=== PATIENT | female | born 1980 | race Caucasian/White ===

== ENCOUNTER 2016-11-06 19:09 | Emergency (ER) | payer SELFPAY ==
[2016-11-06 19:28] VITALS: BP 112/81; BMI 28.1
== END 2016-11-06 21:20 | disposition left against medical advice (07) ==
LOC: ER 19:30
DX: M25.551 Pain in right hip (principal)
CPT/HCPCS: 99281

== ENCOUNTER 2016-11-07 00:19 | Emergency (ER) | payer SELFPAY ==
[2016-11-07 00:30] VITALS: BP 106/69; BMI 28.1
--- NOTE | 2016-11-07 01:12 | DR.GENAD ---
HPI - PCP Primary Care Physician: ORALIA - HPI Comment HPI Comment: PATIENT NOTICE REDNESS RIGHT LATERAL ABDOMINAL WALL 6 DAYS AGO. LESION IS SPREADING AND IS NOW DRAINIG PUS. NO FEVER. PATIENT IS NAUSEATED. NO VOMITING, - Complaint/Symptoms Chief Complaint Doctors Comments: SPIDER BITE TIMES 6 DAYS. NAUSEATED. Chief Complaint:: " Got bite by a spider 5-6 days ago. 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 - Family History History of Family Medical Conditions: Yes Family Medical History: Diabetes Mellitus, Cancer, Coronary Artery Disease, Heart Failure, Hypertension - Social History Alcohol Use: None Do you use any recreational Drugs:: No Lives With: Family Lives Where: Home - infectious screening Have you traveled outside the country in the last 6 months?: No ROS - Review of Systems Constitutional: No Symptoms Reported Eyes: No Symptoms Reported ENTM: No Symptoms Reported Respiratoy: No Symptoms Reported Cardiovascular: No Symptoms Reported Gastrointestinal/Abdominal: Other (RIGHT LAT ABDOMINAL WALL CELLULITIS) Genitourinary: No Symptoms Reported Neurological: No Symptoms Reported Musculoskeletal: Muscle Pain Integumentary: No Symptoms Reported Hematologic/Lymphatic: No Symptoms Reported Endocrine: No Symptoms Reported All Other Systems: Reviewed and Negative PE - Vital Signs Vitals: Temperature 97.6 F Pulse Rate 88 Respiratory Rate 18 Blood Pressure 106/69 O2 Sat by Pulse Oximetry 98 - General Limitations: No Limitations General Appearance: Alert - Head Head Exam: Normal Inspection - Eyes Eye exam: Normal Appearance - ENT ENT Exam: Normal External Ear Exam External Ear Exam: Normal External Inspection TM/Canal Exam: Bilateral Normal Nose Exam: Normal Nose Exam Mouth Exam: Normal Inspection Throat Exam: Normal Inspection - Neck Neck Exam: Trachea Midline - Chest Chest Inspection: Symmetric Chest Wall Rise - Respiratory Respiratory Exam: Normal Lung Sounds Bilat Respiratory Exam: Bilateral Clear to Auscultation - Cardiovascular Cardiovascular Exam: Regular Rate, Normal Rhythm, Normal Heart Sounds - Abdominal Exam Abdominal Exam: Normal Bowel Sounds, Soft, Other (ABDOMINAL WALL TENDERNESS, RIGHT LATERAL) Abdominal Tenderness: Other (RIGHT LAT ABDOMINAL WALL TENDERNESS.) - Extremities Extremities Exam: Normal Inspection - Back Back Exam: Normal Inspection - Neurologic Neurological Exam: Alert, Oriented X3 - Psychiatric Psychiatric Exam: Anxious - Skin Skin Exam: Erythema (REDNESS AND DRAINAGE RIGHT LATERAL ABDOMINAL WALL.) MDM - Additional Information Additional Information Obtained From: Family - Differential Diagnosis Differential Diagnosis: CELLULITIS, NAUSEA, ABSCESS Course - Treatment Treatment: SEE ORDERS - Education/Counseling Education/Counseling: Patient, Family, Education Educated On: Treatment, Diagnosis, Needs for Follow Up ROR - Labs Reviewed Laboratory: 11/07/16 01:19 Abdomen Gram Stain - Final - Diagnosis Discharge Problem: Cellulitis Qualifiers: Site of cellulitis: trunk Site of cellulitis of trunk: abdominal wall Qualified Code(s): L03.311 - Cellulitis of abdominal wall Nausea & vomiting Qualifiers: Vomiting type: unspecified - Discharge Plan Disposition: HOME, SELF-CARE Condition: Stable Prescriptions: Ibuprofen [MOTRIN TAB 600 MG *] 600 mg PO TID PRN #20 tab PRN Reason: Pain/Inflammation Ondansetron HCl [Zofran Tab 4 mg] 4 mg PO Q8H PRN #12 tab PRN Reason: Nausea/Vomiting Sulfamethoxazole-Trimethoprim [BACTRIM DS TAB 800/160 MG *] 1 tab PO BID #20 tab - Follow ups/Referrals Follow ups/Referrals: NFD,None [Primary Care Provider] - 2 days ENRIQUE MEJIA [STAFF PHYSICIAN] - 2 days - Instructions Instructions: Cellulitis, Nausea, Adult Additional Instructions: RETURN TO ED IF WORSE.
[2016-11-07] MEDS ORDERED: BACTRIM DS TAB PO ONE ×2 (01:17→01:31)
[2016-11-07] MEDS ORDERED: ZOFRAN INJ 4 MG VIAL IVP ONE (01:17)
[2016-11-07] MEDS ORDERED: MOTRIN TAB 600 MG PO ONE (01:18)
[2016-11-07] MEDS ORDERED: ZOFRAN TAB 4 MG PO ONE (01:30)
[2016-11-07] MEDS ORDERED: ZOFRAN TAB 4 MG ONE (01:31)
[2016-11-07] MEDS ORDERED: MOTRIN TAB 400 MG PO ONE (01:31)
[2016-11-07] MEDS ORDERED: ADVIL TAB 200 MG PO ONE (01:32)
== END 2016-11-07 01:46 | disposition home or self-care (01) ==
LOC: ER 00:19
DX: L03.311 Cellulitis of abdominal wall (principal); R11.2 Nausea with vomiting, unspecified; B96.29 Other Escherichia coli [E. coli] as the cause of diseases classified elsewhere; W57.XXXA Bitten or stung by nonvenomous insect and other nonvenomous arthropods, initial encounter
CPT/HCPCS: 87070; 87075; 87077; 87186; 87205; 99282; 99283; S0181

== ENCOUNTER 2016-11-29 03:31 | Emergency (ER) | payer SELFPAY ==
[2016-11-29 03:49] VITALS: BP 159/117; BMI 27.3
[2016-11-29] MEDS ORDERED: ZOFRAN INJ 4 MG VIAL ONE ×2 (04:02→07:26)
[2016-11-29] MEDS ORDERED: NS 1000 ML 1,000 ML ONE (04:02)
--- NOTE | 2016-11-29 04:04 | DR.GENAD ---
HPI - PCP Primary Care Physician: NFD - Complaint/Symptoms Chief Complaint:: "I have had nausea and vomiting the past 2-3 days. I have also had diarrhea. I think I may have been running fever as well." - Nurses notes reviewed Nurses Notes Review: Yes - Source History Provided: Patient - Mode of Arrival Mode of Arrival: Stretcher - Timing Onset of Chief Complaint: 11/26/16 Came on: Gradually - Duration Duration: Intermittent How lon Duration: Days - Location Location: stomach - Severity Severity: Moderate - Modifying Factors Worsens:: food - Associated Signs and Symptoms Associated Signs and Symptoms: diarrhea - Other History Other History: drug abuse PMH - PMH Past Medical History: Yes Past Medical History: Anxiety, Asthma, Depression Past Surgical History: Yes 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 - Family History History of Family Medical Conditions: Yes Family Medical History: Diabetes Mellitus, Cancer, Coronary Artery Disease, Heart Failure, Hypertension - Social History Does patient currently use any type of tobacco product: Yes Have you used tobacco products in the last 12 months: Yes Type of Tobacco Use: Cigarettes Does any household member use tobacco: Yes Alcohol Use: None Do you use any recreational Drugs:: No Lives With: Alone Lives Where: Home - infectious screening In the last 2 months have you had wt loss of >10#?: NO Have you had fever, night sweats or hemotysis?: No Have you traveled outside the country in the last 6 months?: No Isolation: Standard ROS - Review of Systems Constitutional: No Symptoms Reported Eyes: No Symptoms Reported ENTM: No Symptoms Reported Respiratoy: No Symptoms Reported Cardiovascular: No Symptoms Reported Gastrointestinal/Abdominal: Diarrhea, Nausea, Vomiting Genitourinary: No Symptoms Reported Neurological: No Symptoms Reported Musculoskeletal: No Symptoms Reported Integumentary: No Symptoms Reported Hematologic/Lymphatic: No Symptoms Reported Endocrine: No Symptoms Reported Psychiatric: Depression PE - Vital Signs Vitals: Temperature 98.1 F Pulse Rate 74 Respiratory Rate 17 Blood Pressure 159/117 O2 Sat by Pulse Oximetry 100 - General Limitations: No Limitations General Appearance: Alert, In No Apparent Distress - Head Head Exam: Normal Inspection - Eyes Eye exam: EOMI. negative: Scleral Icterus, Conjunctival Injection - ENT ENT Exam: Normal Oropharynx External Ear Exam: Normal External Inspection - Neck Neck Exam: Normal Inspection, Full ROM, Trachea Midline - Chest Chest Inspection: Normal Inspection - Respiratory Respiratory Exam: Normal Lung Sounds Bilat. negative: Accessory Muscle Use, Respiratory Distress Respiratory Exam: Bilateral Clear to Auscultation - Cardiovascular Cardiovascular Exam: Tachycardia - Abdominal Exam Abdominal Exam: Normal Inspection, Normal Bowel Sounds, Soft. negative: Distention, Tenderness, Guarding Abdominal Tenderness: Epigastrium - Extremities Extremities Exam: Normal Inspection, Full ROM - Back Back Exam: Normal Inspection, Full ROM - Neurologic Neurological Exam: Alert, Oriented X3, CN II-XII Intact - Psychiatric Psychiatric Exam: Depressed - Skin Skin Exam: Intact, Normal Color ROR - Labs Reviewed Result Diagrams: 11/29/16 04:15 11/29/16 04:15 Laboratory: WBC 9.3 X10^3/uL (3.6-10.0) 11/29/16 04:15 RBC 4.93 X10^6/uL (3.5-5.4) 11/29/16 04:15 Hgb 15.1 g/dL (12.0-16.0) 11/29/16 04:15 Hct 45.3 % (36.0-47.0) 11/29/16 04:15 MCV 92.0 fL (80.0-100.0) 11/29/16 04:15 MCH 30.7 pg (27.0-34.0) 11/29/16 04:15 MCHC 33.4 g/dL (33.0-35.0) 11/29/16 04:15 RDW 13.1 % (11.6-16.5) 11/29/16 04:15 Plt Count 260 X10^3/uL (150.0-450.0) 11/29/16 04:15 MPV 7.7 fL (7.4-11.0) 11/29/16 04:15 Neut % 79.7 % (42.0-75.0) H 11/29/16 04:15 Lymph % 14.6 % (21.0-51.0) L 11/29/16 04:15 [place] % 4.1 % (0.0-13.0) 11/29/16 04:15 Eos % 1.0 % (0.9-2.9) 11/29/16 04:15 Baso % 0.6 % (0.2-1.0) 11/29/16 04:15 Neut # 7.4 x10^3/uL (2.2-4.8) H 11/29/16 04:15 Lymph # 1.4 X10^3/uL (1.3-2.9) 11/29/16 04:15 [place] # 0.4 x10^3/uL (0.3-0.8) 11/29/16 04:15 Eos # 0.1 x10^3/uL (0.0-0.2) 11/29/16 04:15 Baso # 0.1 X10^3/uL (0.0-0.1) 11/29/16 04:15 Absolute Nucleated RBC 0.1 /100WBC 11/29/16 04:15 Sodium 140 mmol/L (136-145) 11/29/16 04:15 Corrected Sodium Not Reportable 11/29/16 04:15 Potassium 5.1 mmol/L (3.5-5.1) 11/29/16 04:15 Chloride 104 mmol/L (98-107) 11/29/16 04:15 Carbon Dioxide 25.9 mmol/L (21-32) 11/29/16 04:15 BUN 9 mg/dL (7-18) 11/29/16 04:15 Creatinine 0.89 mg/dL (0.55-1.02) 11/29/16 04:15 Est GFR (MDRD) Af Amer > 60 (>60) 11/29/16 04:15 Est GFR (MDRD) Non-Af > 60 (>60) 11/29/16 04:15 Glucose 173 mg/dL (65-99) H 11/29/16 04:15 Calcium 9.3 mg/dL (8.5-10.1) 11/29/16 04:15 Corrected Calcium TNP 11/29/16 04:15 Total Bilirubin 0.30 mg/dL (0.2-1.0) 11/29/16 04:15 AST 20 Units/L (15-37) 11/29/16 04:15 ALT 25 Units/L (12-78) 11/29/16 04:15 Alkaline Phosphatase 80 Units/L (46-116) 11/29/16 04:15 Total Protein 7.6 g/dL (6.4-8.2) 11/29/16 04:15 Albumin 3.9 g/dL (3.4-5.0) 11/29/16 04:15 Globulin 3.7 g/dL (2.5-4.5) 11/29/16 04:15 Albumin/Globulin Ratio 1.1 Ratio (1.1-2.1) 11/29/16 04:15 HCG, Qual Negative <10 mIU/mL 11/29/16 04:15 Specimen Type Clean catch urine 11/29/16 04:20 Urine Color Yellow (YELLOW) 11/29/16 04:20 Urine Appearance Cloudy (CLEAR) 11/29/16 04:20 Urine pH 6.0 (5.0 - 8.0) 11/29/16 04:20 Ur Specific [place] 1.025 (1.000-1.030) 11/29/16 04:20 Urine Protein 2+ (NEGATIVE) 11/29/16 04:20 Urine Glucose (UA) 1+ (NEGATIVE) 11/29/16 04:20 Urine Ketones 4+ (NEGATIVE) 11/29/16 04:20 Urine Occult Blood 3+ (NEGATIVE) 11/29/16 04:20 Urine Nitrite Negative (NEGATIVE) 11/29/16 04:20 Urine Bilirubin Negative (NEGATIVE) 11/29/16 04:20 Urine Urobilinogen Normal (NORMAL) 11/29/16 04:20 Ur Leukocyte Esterase 3+ (NEGATIVE) 11/29/16 04:20 Urine RBC 3-5 /HPF (NEGATIVE) 11/29/16 04:20 Urine WBC 10-15 /HPF (NEGATIVE) 11/29/16 04:20 Ur Squamous Epith Cells Few /HPF (NEGATIVE) 11/29/16 04:20 Urine Bacteria 1+ /HPF (NEGATIVE) 11/29/16 04:20 Urine Mucus Moderate /HPF (NEGATIVE) 11/29/16 04:20 Urine Trichomonas Few /HPF (NEGATIVE) 11/29/16 04:20 Ur Culture Indicated? Yes/culture set up 11/29/16 04:20 Urine Opiates Screen Negative (NEG=<300) 11/29/16 04:20 Urine Methadone Screen Negative (NEG=<300) 11/29/16 04:20 Ur Barbiturates Screen Negative (NEG=<200) 11/29/16 04:20 Ur Phencyclidine Scrn Negative (NEG=<25) 11/29/16 04:20 Ur Amphetamines Screen Positive (NEG=<1000) A 11/29/16 04:20 U Benzodiazepines Scrn Negative (NEG=<200) 11/29/16 04:20 Urine Cocaine Screen Positive (NEG=<300) A 11/29/16 04:20 U Marijuana (THC) Screen Positive (NEG=<50) A 11/29/16 04:20 - Diagnosis Discharge Problem: Trichomonal infection, Cocaine abuse, Amphetamine abuse UTI (urinary tract infection) Qualifiers: Urinary tract infection type: acute cystitis Hematuria presence: with hematuria Qualified Code(s): N30.01 - Acute cystitis with hematuria - Discharge Plan Condition: Stable - Follow ups/Referrals Follow ups/Referrals: NFD,None [Primary Care Provider] - 3 days - Instructions
[2016-11-29] MEDS ORDERED: ZOFRAN INJ 4 MG VIAL IVP ONE ×2 (04:05→07:13)
[2016-11-29] MEDS ORDERED: NS 500 ML IV 1,000 ML IV ONE (04:05)
[2016-11-29 04:24] LABS: BASOPHILS # (AUTO) 0.1 X10^3/uL (0.0-0.1); BASOPHILS % (AUTO) 0.6 % (0.2-1.0); EOSINOPHILS # (AUTO) 0.1 x10^3/uL (0.0-0.2); HEMATOCRIT 45.3 % (36.0-47.0); HEMOGLOBIN 15.1 g/dL (12.0-16.0); LYMPHOCYTES # (AUTO) 1.4 X10^3/uL (1.3-2.9); LYMPHOCYTES % (AUTO) 14.6 % (21.0-51.0); MEAN CORPUSCULAR HEMOGLOBIN 30.7 pg (27.0-34.0); MEAN CORPUSCULAR HGB CONC 33.4 g/dL (33.0-35.0); MEAN PLATELET VOLUME 7.7 fL (7.4-11.0); MONOCYTES # (AUTO) 0.4 x10^3/uL (0.3-0.8); MONOCYTES % (AUTO) 4.1 % (0.0-13.0); NEUTROPHILS # (AUTO) 7.4 x10^3/uL (2.2-4.8); NEUTROPHILS % (AUTO) 79.7 % (42.0-75.0); PLATELET COUNT 260 X10^3/uL (150.0-450.0); RED BLOOD COUNT 4.93 X10^6/uL (3.5-5.4); RED CELL DISTRIBUTION WIDTH 13.1 % (11.6-16.5); WHITE BLOOD COUNT 9.3 X10^3/uL (3.6-10.0)
[2016-11-29 04:34] LABS: BILIRUBIN,URINE NEGATIVE (NEGATIVE); BLOOD/HEMOGLOBIN,URINE 3+ (NEGATIVE); GLUCOSE, URINE 1+ (NEGATIVE); KETONES,URINE 4+ (NEGATIVE); LEUKOCYTE ESTERASE ,URINE 3+ (NEGATIVE); NITRITES,URINE NEGATIVE (NEGATIVE); PROTEIN,URINE 2+ (NEGATIVE); UROBILINOGEN,URINE NORMAL (NORMAL)
[2016-11-29 04:36] LABS: SERUM PREGNANCY TEST, QUAL NEGATIVE <10 mIU/mL
[2016-11-29 04:47] LABS: APPEARANCE,URINE CLOUDY (CLEAR); BACTERIA,URINE 1+ /HPF (NEGATIVE); COLOR,URINE YELLOW (YELLOW); MUCUS,URINE MODERATE /HPF (NEGATIVE); SQUAMOUS EPITHELIAL CELL,UR FEW /HPF (NEGATIVE); TRICHOMONAS,URINE FEW /HPF (NEGATIVE)
[2016-11-29 04:47] LABS: ALBUMIN 3.9 g/dL (3.4-5.0); ASPARTATE AMINO TRANSFERASE 20 Units/L (15-37); BLOOD UREA NITROGEN 9 mg/dL (7-18); CALCIUM 9.3 mg/dL (8.5-10.1); CARBON DIOXIDE 25.9 mmol/L (21-32); CREATININE 0.89 mg/dL (0.55-1.02); GLUCOSE 173 mg/dL (65-99); eGFR BLACK RACES > 60 (>60); eGFR NON BLACK RACES > 60 (>60)
[2016-11-29 05:06] LABS: ALANINE AMINOTRANSFERASE 25 Units/L (12-78); ALKALINE PHOSPHATASE 80 Units/L (46-116); CHLORIDE 104 mmol/L (98-107); SODIUM 140 mmol/L (136-145); TOTAL PROTEIN 7.6 g/dL (6.4-8.2)
[2016-11-29] MEDS ORDERED: PHENERGAN INJ 25 MG ONE (05:34)
[2016-11-29] MEDS ORDERED: PHENERGAN INJ 25 MG IV ONE (05:34)
[2016-11-29] MEDS ORDERED: FLAGYL IV PREMIX 500 MG BAG 500 MG/100 ML BAG IV ONE ×2 (05:43→06:04)
== END 2016-11-29 07:34 | disposition home or self-care (01) ==
LOC: ER 03:31
DX: F14.10 Cocaine abuse, uncomplicated (principal); F15.10 Other stimulant abuse, uncomplicated; N30.01 Acute cystitis with hematuria; A59.9 Trichomoniasis, unspecified
CPT/HCPCS: 36415; 80053; 80307; 81001; 84703; 85025; 87086; 96365; 96374; 96375; 99283; A4222; S0030; G0434; J2405; J2550

== ENCOUNTER 2016-11-29 20:22 | Emergency (ER) | payer SELFPAY ==
[2016-11-29 20:29] VITALS: BP 109/74; BMI 25.8
[2016-11-29] MEDS ORDERED: TORADOL 60 MG VIAL IM ONE (21:33)
[2016-11-29] MEDS ORDERED: ZOFRAN INJ 4 MG VIAL IM ONE (21:33)
--- NOTE | 2016-11-29 21:33 | DR.GENAD ---
HPI - PCP Primary Care Physician: nfd - HPI Comment HPI Comment: SEEN AT THIS ED YESTERDAY. UTI DIAGNOSE. PERSISTENT SYMTOMS AND FEELING WORSE. NO FEVER. ZOFRAN NOT RELIEVING NAUSEA AND VOMITING. - Complaint/Symptoms Chief Complaint Doctors Comments: ABDOMINAL PAIN, NAUSEA, VOMITING AND REFLUX FLARE UP TIME FEW DAYS. 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 Past Surgical History Comment: tubaligation - Family History History of Family Medical Conditions: Yes Family Medical History: Diabetes Mellitus, Cancer, Coronary Artery Disease, Heart Failure, Hypertension - Social History Type of Tobacco Use: Cigarettes Alcohol Use: None Do you use any recreational Drugs:: Yes Lives With: Family Lives Where: Home - infectious screening In the last 2 months have you had wt loss of >10#?: NO Have you had fever, night sweats or hemotysis?: No Have you traveled outside the country in the last 6 months?: No Isolation: Standard ROS - Review of Systems Constitutional: Weakness, Fatigue, Loss of Appetite. negative: Chills, Diaphoresis, Fever Eyes: No Symptoms Reported. negative: Eye Pain, Discharge ENTM: No Symptoms Reported. negative: Ear Pain, Nose Discharge, Nose Congestion , Throat Pain Respiratoy: No Symptoms Reported. negative: Productive Cough, Non-Productive Cough, Short of Breath, Wheezing, Hemoptysis Cardiovascular: No Symptoms Reported. negative: Chest Pain Gastrointestinal/Abdominal: Abdominal Pain, Nausea, Vomiting Genitourinary: No Symptoms Reported. negative: Dysuria, Frequency, Hematuria Neurological: Weakness, Dizziness. negative: Headache Musculoskeletal: Muscle Pain Integumentary: No Symptoms Reported Hematologic/Lymphatic: No Symptoms Reported Endocrine: No Symptoms Reported All Other Systems: Reviewed and Negative PE - Vital Signs Vitals: Temperature 98.2 F Pulse Rate 97 Respiratory Rate 18 Blood Pressure 109/74 O2 Sat by Pulse Oximetry 100 - General Limitations: No Limitations General Appearance: Alert - Head Head Exam: Normal Inspection - Eyes Eye exam: Normal Appearance - ENT ENT Exam: Normal External Ear Exam External Ear Exam: Normal External Inspection TM/Canal Exam: Bilateral Normal Nose Exam: Normal Nose Exam Mouth Exam: Normal Inspection Throat Exam: Normal Inspection - Neck Neck Exam: Normal Inspection - Chest Chest Inspection: Symmetric Chest Wall Rise - Respiratory Respiratory Exam: Normal Lung Sounds Bilat Respiratory Exam: Bilateral Clear to Auscultation - Cardiovascular Cardiovascular Exam: Regular Rate, Normal Rhythm, Normal Heart Sounds - Abdominal Exam Abdominal Exam: Normal Bowel Sounds, Soft, Tenderness Abdominal Tenderness: Diffuse, Moderate - Extremities Extremities Exam: Normal Inspection - Back Back Exam: Normal Inspection - Neurologic Neurological Exam: Alert, Oriented X3 - Psychiatric Psychiatric Exam: Anxious - Skin Skin Exam: Normal Color MDM - Differential Diagnosis Differential Diagnosis: ABDOMINAL PAIN, N/V, GASTRITIS, HISTORY UTI, DEHYDRATION Course - Treatment Treatment: SEE ORDERS. MEDS IN ED. PAIN IMPROVED. - Education/Counseling Education/Counseling: Patient, Education Educated On: Treatment, Diagnosis, Needs for Follow Up ROR - Labs Reviewed Laboratory Results Reviewed?: Yes Result Diagrams: 11/29/16 21:35 11/29/16 21:35 Laboratory: WBC 9.5 X10^3/uL (3.6-10.0) 11/29/16 21:35 RBC 4.73 X10^6/uL (3.5-5.4) 11/29/16 21:35 Hgb 14.6 g/dL (12.0-16.0) 11/29/16 21:35 Hct 43.5 % (36.0-47.0) 11/29/16 21:35 MCV 92.0 fL (80.0-100.0) 11/29/16 21:35 MCH 30.9 pg (27.0-34.0) 11/29/16 21:35 MCHC 33.6 g/dL (33.0-35.0) 11/29/16 21:35 RDW 13.1 % (11.6-16.5) 11/29/16 21:35 Plt Count 255 X10^3/uL (150.0-450.0) 11/29/16 21:35 MPV 7.5 fL (7.4-11.0) 11/29/16 21:35 Neut % 76.4 % (42.0-75.0) H 11/29/16 21:35 Lymph % 14.8 % (21.0-51.0) L 11/29/16 21:35 [place] % 8.4 % (0.0-13.0) 11/29/16 21:35 Eos % 0.1 % (0.9-2.9) L 11/29/16 21:35 Baso % 0.3 % (0.2-1.0) 11/29/16 21:35 Neut # 7.2 x10^3/uL (2.2-4.8) H 11/29/16 21:35 Lymph # 1.4 X10^3/uL (1.3-2.9) 11/29/16 21:35 [place] # 0.8 x10^3/uL (0.3-0.8) 11/29/16 21:35 Eos # 0.0 x10^3/uL (0.0-0.2) 11/29/16 21:35 Baso # 0.0 X10^3/uL (0.0-0.1) 11/29/16 21:35 Absolute Nucleated RBC 0.1 /100WBC 11/29/16 21:35 Sodium 140 mmol/L (136-145) 11/29/16 21:35 Corrected Sodium 140 mmol/L (136-145) 11/29/16 21:35 Potassium 3.8 mmol/L (3.5-5.1) 11/29/16 21:35 Chloride 103 mmol/L (98-107) 11/29/16 21:35 Carbon Dioxide 27.3 mmol/L (21-32) 11/29/16 21:35 BUN 13 mg/dL (7-18) 11/29/16 21:35 Creatinine 0.97 mg/dL (0.55-1.02) 11/29/16 21:35 Est GFR (MDRD) Af Amer > 60 (>60) 11/29/16 21:35 Est GFR (MDRD) Non-Af > 60 (>60) 11/29/16 21:35 Glucose 113 mg/dL (65-99) H 11/29/16 21:35 Calcium 9.4 mg/dL (8.5-10.1) 11/29/16 21:35 Corrected Calcium TNP 11/29/16 21:35 Total Bilirubin 0.30 mg/dL (0.2-1.0) 11/29/16 21:35 AST 17 Units/L (15-37) 11/29/16 21:35 ALT 22 Units/L (12-78) 11/29/16 21:35 Alkaline Phosphatase 74 Units/L (46-116) 11/29/16 21:35 Total Protein 7.4 g/dL (6.4-8.2) 11/29/16 21:35 Albumin 3.8 g/dL (3.4-5.0) 11/29/16 21:35 Globulin 3.6 g/dL (2.5-4.5) 11/29/16 21:35 Albumin/Globulin Ratio 1.1 Ratio (1.1-2.1) 11/29/16 21:35 - Diagnosis Discharge Problem: Abdominal pain Qualifiers: Abdominal location: generalized Qualified Code(s): R10.84 - Generalized abdominal pain UTI (urinary tract infection) Qualifiers: Urinary tract infection type: site unspecified Hematuria presence: without hematuria Qualified Code(s): N39.0 - Urinary tract infection, site not specified Nausea & vomiting Qualifiers: Vomiting type: bilious vomiting Qualified Code(s): R11.14 - Bilious vomiting - Discharge Plan Disposition: HOME, SELF-CARE Condition: Stable Prescriptions: Promethazine HCl [PHENERGAN TAB 25 MG *] 25 mg PO Q8H PRN #15 tab PRN Reason: Nausea/Vomiting Ranitidine HCl [ZANTAC TAB 150 MG *] 150 mg PO BID #30 tab - Follow ups/Referrals Follow ups/Referrals: NFD,None [Primary Care Provider] - 3 days - Instructions Instructions: Abdominal Pain, Adult, [id number], Nausea and Vomiting, Adult, [id number] Additional Instructions: RETURN TO ED IF WORSE, RETURN TO ED IF WORSE.
[2016-11-29 21:43] LABS: BASOPHILS % (AUTO) 0.3 % (0.2-1.0); EOSINOPHILS % (AUTO) 0.1 % (0.9-2.9); HEMATOCRIT 43.5 % (36.0-47.0); HEMOGLOBIN 14.6 g/dL (12.0-16.0); LYMPHOCYTES # (AUTO) 1.4 X10^3/uL (1.3-2.9); LYMPHOCYTES % (AUTO) 14.8 % (21.0-51.0); MEAN CORPUSCULAR HEMOGLOBIN 30.9 pg (27.0-34.0); MEAN CORPUSCULAR HGB CONC 33.6 g/dL (33.0-35.0); MEAN PLATELET VOLUME 7.5 fL (7.4-11.0); MONOCYTES # (AUTO) 0.8 x10^3/uL (0.3-0.8); MONOCYTES % (AUTO) 8.4 % (0.0-13.0); NEUTROPHILS # (AUTO) 7.2 x10^3/uL (2.2-4.8); NEUTROPHILS % (AUTO) 76.4 % (42.0-75.0); PLATELET COUNT 255 X10^3/uL (150.0-450.0); RED BLOOD COUNT 4.73 X10^6/uL (3.5-5.4); RED CELL DISTRIBUTION WIDTH 13.1 % (11.6-16.5); WHITE BLOOD COUNT 9.5 X10^3/uL (3.6-10.0)
[2016-11-29] MEDS ORDERED: ZOFRAN INJ 4 MG VIAL ONE (21:48)
[2016-11-29] MEDS ORDERED: TORADOL 60 MG VIAL ONE (21:48)
[2016-11-29 21:55] LABS: ALANINE AMINOTRANSFERASE 22 Units/L (12-78); ALBUMIN 3.8 g/dL (3.4-5.0); ALKALINE PHOSPHATASE 74 Units/L (46-116); ASPARTATE AMINO TRANSFERASE 17 Units/L (15-37); BLOOD UREA NITROGEN 13 mg/dL (7-18); CALCIUM 9.4 mg/dL (8.5-10.1); CARBON DIOXIDE 27.3 mmol/L (21-32); CHLORIDE 103 mmol/L (98-107); COR NA(FOR HYPERGLY) 140 mmol/L (136-145); CREATININE 0.97 mg/dL (0.55-1.02); GLUCOSE 113 mg/dL (65-99); SODIUM 140 mmol/L (136-145); TOTAL PROTEIN 7.4 g/dL (6.4-8.2); eGFR BLACK RACES > 60 (>60); eGFR NON BLACK RACES > 60 (>60)
[2016-11-29] MEDS ORDERED: LEVSIN/MAALOX/LIDOC VISC PO ONE (22:10)
[2016-11-29] MEDS ORDERED: LEVSIN/MAALOX/LIDOC VISC ONE (22:11)
[2016-11-29] MEDS ORDERED: PHENERGAN INJ 25 MG IM ONE (22:38)
[2016-11-29] MEDS ORDERED: ZANTAC PO ONE (22:40)
[2016-11-29] MEDS ORDERED: PHENERGAN TAB 25 MG PO ONE (22:41)
== END 2016-11-29 23:04 | disposition home or self-care (01) ==
LOC: ER 20:34
DX: N39.0 Urinary tract infection, site not specified (principal); R10.84 Generalized abdominal pain; R11.14 Bilious vomiting
CPT/HCPCS: 36415; 80053; 85025; 96372; 99283; Q0169; J1885; J2405

== ENCOUNTER 2016-11-30 16:21 | Emergency (ER) | payer SELFPAY ==
[2016-11-30 16:27] VITALS: BP 119/78; BMI 25.8
--- NOTE | 2016-11-30 17:21 | DR.GENAD ---
HPI - PCP Primary Care Physician: nfd - Complaint/Symptoms Chief Complaint Doctors Comments: This is the 3rd day patient presented for same complaints. Chief Complaint:: patient stated she has been vomiting and running off and her period has started and its heavier than normal. 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: NO Have you had fever, night sweats or hemotysis?: No Have you traveled outside the country in the last 6 months?: No Isolation: Standard ROS - Review of Systems Eyes: No Symptoms Reported ENTM: No Symptoms Reported Respiratoy: No Symptoms Reported Cardiovascular: No Symptoms Reported Gastrointestinal/Abdominal: No Symptoms Reported Genitourinary: No Symptoms Reported Neurological: Headache Musculoskeletal: No Symptoms Reported Integumentary: No Symptoms Reported Hematologic/Lymphatic: No Symptoms Reported Endocrine: No Symptoms Reported Psychiatric: No Symptoms Reported All Other Systems: Reviewed and Negative PE - Vital Signs Vitals: Temperature 98.6 F Pulse Rate 86 Respiratory Rate 16 Blood Pressure 119/78 O2 Sat by Pulse Oximetry 99 - General Limitations: No Limitations General Appearance: Alert, In No Apparent Distress - Head Head Exam: Normal Inspection, Atraumatic - Eyes Eye exam: Normal Appearance, PERRL, EOMI - ENT ENT Exam: Normal Exam External Ear Exam: Normal External Inspection TM/Canal Exam: Bilateral Normal Nose Exam: Normal Nose Exam Mouth Exam: Normal Inspection Throat Exam: Normal Inspection - Neck Neck Exam: Normal Inspection - Chest Chest Inspection: Normal Inspection - Respiratory Respiratory Exam: Normal Lung Sounds Bilat Respiratory Exam: Bilateral Clear to Auscultation - Cardiovascular Cardiovascular Exam: Regular Rate, Normal Rhythm - Abdominal Exam Abdominal Exam: Normal Inspection Abdominal Tenderness: negative: RUQ, RLQ, LUQ, LLQ, Epigastrium, Suprapubic, Diffuse, Mild, Moderate, Severe, Other - Extremities Extremities Exam: Normal Inspection, Full ROM - Neurologic Neurological Exam: Alert, Oriented X3, CN II-XII Intact ROR - Labs Reviewed Result Diagrams: 11/30/16 17:40 11/30/16 17:40 Laboratory: WBC 10.0 X10^3/uL (3.6-10.0) 11/30/16 17:40 RBC 4.66 X10^6/uL (3.5-5.4) 11/30/16 17:40 Hgb 14.5 g/dL (12.0-16.0) 11/30/16 17:40 Hct 42.5 % (36.0-47.0) 11/30/16 17:40 MCV 91.1 fL (80.0-100.0) 11/30/16 17:40 MCH 31.2 pg (27.0-34.0) 11/30/16 17:40 MCHC 34.2 g/dL (33.0-35.0) 11/30/16 17:40 RDW 13.3 % (11.6-16.5) 11/30/16 17:40 Plt Count 245 X10^3/uL (150.0-450.0) 11/30/16 17:40 MPV 7.8 fL (7.4-11.0) 11/30/16 17:40 Neut % 72.5 % (42.0-75.0) 11/30/16 17:40 Lymph % 17.9 % (21.0-51.0) L 11/30/16 17:40 [place] % 8.7 % (0.0-13.0) 11/30/16 17:40 Eos % 0.3 % (0.9-2.9) L 11/30/16 17:40 Baso % 0.6 % (0.2-1.0) 11/30/16 17:40 Neut # 7.2 x10^3/uL (2.2-4.8) H 11/30/16 17:40 Lymph # 1.8 X10^3/uL (1.3-2.9) 11/30/16 17:40 [place] # 0.9 x10^3/uL (0.3-0.8) H 11/30/16 17:40 Eos # 0.0 x10^3/uL (0.0-0.2) 11/30/16 17:40 Baso # 0.1 X10^3/uL (0.0-0.1) 11/30/16 17:40 Absolute Nucleated RBC 0.1 /100WBC 11/30/16 17:40 Sodium 140 mmol/L (136-145) 11/30/16 17:40 Corrected Sodium TNP 11/30/16 17:40 Potassium 3.6 mmol/L (3.5-5.1) 11/30/16 17:40 Chloride 102 mmol/L (98-107) 11/30/16 17:40 Carbon Dioxide 29.1 mmol/L (21-32) 11/30/16 17:40 BUN 23 mg/dL (7-18) H 11/30/16 17:40 Creatinine 0.97 mg/dL (0.55-1.02) 11/30/16 17:40 Est GFR (MDRD) Af Amer > 60 (>60) 11/30/16 17:40 Est GFR (MDRD) Non-Af > 60 (>60) 11/30/16 17:40 Glucose 99 mg/dL (65-99) 11/30/16 17:40 Calcium 9.7 mg/dL (8.5-10.1) 11/30/16 17:40 Corrected Calcium TNP 11/30/16 17:40 Total Bilirubin 0.40 mg/dL (0.2-1.0) 11/30/16 17:40 AST 21 Units/L (15-37) 11/30/16 17:40 ALT 22 Units/L (12-78) 11/30/16 17:40 Alkaline Phosphatase 73 Units/L (46-116) 11/30/16 17:40 Total Protein 7.3 g/dL (6.4-8.2) 11/30/16 17:40 Albumin 4.0 g/dL (3.4-5.0) 11/30/16 17:40 Globulin 3.3 g/dL (2.5-4.5) 11/30/16 17:40 Albumin/Globulin Ratio 1.2 Ratio (1.1-2.1) 11/30/16 17:40 - Diagnosis Discharge Problem: Gastroenteritis - Discharge Plan Condition: Stable - Follow ups/Referrals Follow ups/Referrals: NFD,None [Primary Care Provider] - 3 days - Instructions
[2016-11-30] MEDS ORDERED: PHENERGAN INJ 25 MG IV ONE (17:24)
[2016-11-30] MEDS ORDERED: TORADOL 30 MG VIAL IVP ONE (17:45)
[2016-11-30 17:49] LABS: BASOPHILS # (AUTO) 0.1 X10^3/uL (0.0-0.1); BASOPHILS % (AUTO) 0.6 % (0.2-1.0); EOSINOPHILS % (AUTO) 0.3 % (0.9-2.9); HEMATOCRIT 42.5 % (36.0-47.0); HEMOGLOBIN 14.5 g/dL (12.0-16.0); LYMPHOCYTES # (AUTO) 1.8 X10^3/uL (1.3-2.9); LYMPHOCYTES % (AUTO) 17.9 % (21.0-51.0); MEAN CORPUSCULAR HEMOGLOBIN 31.2 pg (27.0-34.0); MEAN CORPUSCULAR HGB CONC 34.2 g/dL (33.0-35.0); MEAN CORPUSCULAR VOLUME 91.1 fL (80.0-100.0); MEAN PLATELET VOLUME 7.8 fL (7.4-11.0); MONOCYTES # (AUTO) 0.9 x10^3/uL (0.3-0.8); MONOCYTES % (AUTO) 8.7 % (0.0-13.0); NEUTROPHILS # (AUTO) 7.2 x10^3/uL (2.2-4.8); NEUTROPHILS % (AUTO) 72.5 % (42.0-75.0); PLATELET COUNT 245 X10^3/uL (150.0-450.0); RED BLOOD COUNT 4.66 X10^6/uL (3.5-5.4); RED CELL DISTRIBUTION WIDTH 13.3 % (11.6-16.5)
[2016-11-30] MEDS ORDERED: PHENERGAN INJ 25 MG ONE (17:49)
[2016-11-30] MEDS ORDERED: NS 1000 ML 1,000 ML ONE (17:49)
[2016-11-30] MEDS ORDERED: TORADOL 30 MG VIAL ONE (17:59)
[2016-11-30] MEDS ORDERED: NS 1000 ML 1,000 ML IV SCH (18:00)
[2016-11-30] MEDS ORDERED: REGLAN INJ 10 MG VIAL ONE (18:08)
[2016-11-30 18:09] LABS: ALANINE AMINOTRANSFERASE 22 Units/L (12-78); ALKALINE PHOSPHATASE 73 Units/L (46-116); ASPARTATE AMINO TRANSFERASE 21 Units/L (15-37); BLOOD UREA NITROGEN 23 mg/dL (7-18); CALCIUM 9.7 mg/dL (8.5-10.1); CARBON DIOXIDE 29.1 mmol/L (21-32); CHLORIDE 102 mmol/L (98-107); CREATININE 0.97 mg/dL (0.55-1.02); GLUCOSE 99 mg/dL (65-99); SODIUM 140 mmol/L (136-145); TOTAL PROTEIN 7.3 g/dL (6.4-8.2); eGFR BLACK RACES > 60 (>60); eGFR NON BLACK RACES > 60 (>60)
[2016-11-30] MEDS ORDERED: REGLAN INJ 10 MG VIAL IVP ONE (18:09)
== END 2016-11-30 19:10 | disposition home or self-care (01) ==
LOC: ER 16:31
DX: K52.89 Other specified noninfective gastroenteritis and colitis (principal)
CPT/HCPCS: 36415; 80053; 85025; 96365; 96367; 96374; 96375; 99283; A4222; J1885; J2550; J2765

== ENCOUNTER 2016-12-01 01:43 | Emergency (ER) | payer SELFPAY ==
[2016-12-01 01:50] VITALS: BP 138/92; BMI 19.5
--- NOTE | 2016-12-01 01:52 | DR.NAUSEAF ---
HPI - Time Seen Time seen: 01:51 - Primary Care Physician Primary Care Physician: nfd - Complaints Chief Complaint Doctors Comments: N,V,D. Patient was seen earlier tonight for same symptoms. VSS (normal) she is afebrile. 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 - Family History History of Family Medical Conditions: Yes Family Medical History: Diabetes Mellitus, Cancer, Coronary Artery Disease, Heart Failure, Hypertension - Social History Do you use any recreational Drugs:: Yes (thc, meth,cocain.) Lives Where: Home - infectious screening Have you traveled outside the country in the last 6 months?: No Isolation: Standard ROS - Review of Systems Eyes: No Symptoms Reported ENTM: No Symptoms Reported Respiratoy: No Symptoms Reported Cardiovascular: No Symptoms Reported Gastrointestinal/Abdominal: No Symptoms Reported Genitourinary: No Symptoms Reported Neurological: No Symptoms Reported Musculoskeletal: No Symptoms Reported Integumentary: No Symptoms Reported Hematologic/Lymphatic: No Symptoms Reported Endocrine: No Symptoms Reported Psychiatric: No Symptoms Reported All Other Systems: Reviewed and Negative PE - Vital Signs Vitals: Temperature 98.9 F Pulse Rate 81 Respiratory Rate 16 Blood Pressure 138/92 O2 Sat by Pulse Oximetry 99 - General Limitations: No Limitations General Appearance: Alert, In No Apparent Distress - Head Head Exam: Normal Inspection, Atraumatic - Eyes Eye exam: Normal Appearance, PERRL, EOMI - Neck Neck Exam: Normal Inspection - Respiratory Respiratory Exam: Normal Lung Sounds Bilat Respiratory Exam: Bilateral Clear to Auscultation - Cardiovascular Cardiovascular Exam: Regular Rate, Normal Rhythm - Abdominal Exam Abdominal Exam: Normal Inspection, Soft. negative: Distention, Tenderness Abdominal Tenderness: negative: RUQ, RLQ, LUQ, LLQ, Epigastrium, Suprapubic, Diffuse, Mild, Moderate, Severe, Other - Rectal Rectal Exam: Deferred - External Exam: Female: Deferred : Speculum Exam (Female): Deferred : Bimanual Exam (female): Normal Bimanual exam - Extremities Extremities Exam: Normal Inspection, Full ROM - Back Back Exam: Normal Inspection, Full ROM - Neurologic Neurological Exam: Alert, Oriented X3, CN II-XII Intact - Psychiatric Psychiatric Exam: Normal Affect - Skin Skin Exam: Warm, Dry, Intact - Diagnosis Discharge Problem: Gastroenteritis - Discharge Plan Disposition: 01 HOME, SELF-CARE Condition: Stable - Follow ups/Referrals Follow ups/Referrals: NFD,None [Primary Care Provider] - 3 days - Instructions Instructions: Viral Gastroenteritis, Adult, [id number]
[2016-12-01] MEDS ORDERED: BENTYL I.M. INJ 10 MG IM ONE ×2 (02:01→02:04)
[2016-12-01] MEDS ORDERED: PHENERGAN INJ 25 MG IM ONE (02:01)
[2016-12-01] MEDS ORDERED: PHENERGAN INJ 25 MG ONE (02:03)
== END 2016-12-01 02:38 | disposition home or self-care (01) ==
LOC: ER 01:43
DX: K52.89 Other specified noninfective gastroenteritis and colitis (principal)
CPT/HCPCS: 96372; 99282; J0500; J2550

== ENCOUNTER 2016-12-05 01:44 | Emergency (ER) | payer SELFPAY ==
[2016-12-05 01:52] VITALS: BP 127/90; BMI 19.5
--- NOTE | 2016-12-05 02:12 | DR.GENAD ---
HPI - PCP Primary Care Physician: nfd - HPI Comment HPI Comment: GETTING WORSE. WAS EVALUATED IN ED FOR SAME FEW TIMES WITHIN 5 DAYS. NO FEVER. HOLD DOWN FLUIDS BUT THROW IT UP. - Complaint/Symptoms Chief Complaint Doctors Comments: ABDOMINAL PAIN, NAUSEA AND VOMITING TIMES 5 DAYS. Chief Complaint:: Patient c/o n/v for the last 5 days. Patient stated "my stomach hurts and my period is heavy. I have been taking my bactrium for my UTI and my reglan,zofran and phenergan. 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 - Family History History of Family Medical Conditions: Yes Family Medical History: Diabetes Mellitus, Cancer, Coronary Artery Disease, Heart Failure, Hypertension - Social History Does patient currently use any type of tobacco product: Yes Have you used tobacco products in the last 12 months: Yes Do you use any recreational Drugs:: Yes (thc, meth,cocain.) Lives Where: Home - infectious screening In the last 2 months have you had wt loss of >10#?: NO Have you had fever, night sweats or hemotysis?: No Have you traveled outside the country in the last 6 months?: No Isolation: Standard ROS - Review of Systems Constitutional: Weakness, Fatigue, Loss of Appetite. negative: Chills, Diaphoresis, Fever Eyes: No Symptoms Reported. negative: Eye Pain, Discharge ENTM: No Symptoms Reported. negative: Ear Pain, Nose Discharge, Nose Congestion , Throat Pain Respiratoy: Non-Productive Cough. negative: Productive Cough, Short of Breath, Wheezing, Hemoptysis Cardiovascular: No Symptoms Reported. negative: Chest Pain, Edema Gastrointestinal/Abdominal: Abdominal Pain, Nausea, Vomiting Genitourinary: No Symptoms Reported, Bleeding (MENSTRUATING.). negative: Dysuria, Frequency, Hematuria Neurological: Headache, Weakness, Dizziness Musculoskeletal: Muscle Pain Integumentary: No Symptoms Reported Hematologic/Lymphatic: No Symptoms Reported Endocrine: No Symptoms Reported All Other Systems: Reviewed and Negative PE - Vital Signs Vitals: Temperature 98.2 F Pulse Rate 105 Respiratory Rate 22 Blood Pressure 127/90 O2 Sat by Pulse Oximetry 98 - General Limitations: No Limitations General Appearance: Alert - Head Head Exam: Normal Inspection - Eyes Eye exam: Normal Appearance - ENT ENT Exam: Normal External Ear Exam External Ear Exam: Normal External Inspection TM/Canal Exam: Bilateral Normal Nose Exam: Normal Nose Exam Mouth Exam: Normal Inspection Throat Exam: Normal Inspection - Neck Neck Exam: Trachea Midline. negative: Tenderness, Meningismus, Lymphadenopathy - Chest Chest Inspection: Symmetric Chest Wall Rise - Respiratory Respiratory Exam: Normal Lung Sounds Bilat Respiratory Exam: Bilateral Clear to Auscultation - Cardiovascular Cardiovascular Exam: Regular Rate, Normal Rhythm, Normal Heart Sounds - Abdominal Exam Abdominal Exam: Normal Bowel Sounds, Soft Abdominal Tenderness: Diffuse, Moderate - Extremities Extremities Exam: Normal Inspection, Full ROM, Tenderness. negative: Edema - Back Back Exam: Normal Inspection - Neurologic Neurological Exam: Alert, Oriented X3, CN II-XII Intact, Normal Gait, Reflexes Normal. negative: Motor Sensory Deficit - Psychiatric Psychiatric Exam: Normal Affect, Normal Mood - Skin Skin Exam: Normal Color MDM - Differential Diagnosis Differential Diagnosis: GASTRITIS, GASTROENTERITIS, BOWEL OBSTRUCTION, UTI Course - Treatment Treatment: IM THORADOL ABD PHENERGAN IN ED. PATIENT HAD CT ABD AND PELVIS DONR IN ED. NO OAUTE FINDINGS. - Reevaluation 1st: Improved - Education/Counseling Education/Counseling: Patient, Education Educated On: Treatment, Diagnosis, Needs for Follow Up ROR - Labs Reviewed Laboratory Results Reviewed?: Yes Result Diagrams: 12/05/16 02:30 12/05/16 02:30 Laboratory: WBC 9.0 X10^3/uL (3.6-10.0) 12/05/16 02:30 RBC 4.46 X10^6/uL (3.5-5.4) 12/05/16 02:30 Hgb 13.8 g/dL (12.0-16.0) 12/05/16 02:30 Hct 40.9 % (36.0-47.0) 12/05/16 02:30 MCV 91.6 fL (80.0-100.0) 12/05/16 02:30 MCH 30.9 pg (27.0-34.0) 12/05/16 02:30 MCHC 33.8 g/dL (33.0-35.0) 12/05/16 02:30 RDW 12.9 % (11.6-16.5) 12/05/16 02:30 Plt Count 221 X10^3/uL (150.0-450.0) 12/05/16 02:30 MPV 7.7 fL (7.4-11.0) 12/05/16 02:30 Neut % 75.2 % (42.0-75.0) H 12/05/16 02:30 Lymph % 17.0 % (21.0-51.0) L 12/05/16 02:30 [place] % 4.8 % (0.0-13.0) 12/05/16 02:30 Eos % 2.4 % (0.9-2.9) 12/05/16 02:30 Baso % 0.6 % (0.2-1.0) 12/05/16 02:30 Neut # 6.7 x10^3/uL (2.2-4.8) H 12/05/16 02:30 Lymph # 1.5 X10^3/uL (1.3-2.9) 12/05/16 02:30 [place] # 0.4 x10^3/uL (0.3-0.8) 12/05/16 02:30 Eos # 0.2 x10^3/uL (0.0-0.2) 12/05/16 02:30 Baso # 0.1 X10^3/uL (0.0-0.1) 12/05/16 02:30 Absolute Nucleated RBC 0.0 /100WBC 12/05/16 02:30 Sodium 140 mmol/L (136-145) 12/05/16 02:30 Corrected Sodium 141 mmol/L (136-145) 12/05/16 02:30 Potassium 3.2 mmol/L (3.5-5.1) L 12/05/16 02:30 Chloride 104 mmol/L (98-107) 12/05/16 02:30 Carbon Dioxide 21.3 mmol/L (21-32) 12/05/16 02:30 BUN 13 mg/dL (7-18) 12/05/16 02:30 Creatinine 0.74 mg/dL (0.55-1.02) 12/05/16 02:30 Est GFR (MDRD) Af Amer > 60 (>60) 12/05/16 02:30 Est GFR (MDRD) Non-Af > 60 (>60) 12/05/16 02:30 Glucose 126 mg/dL (65-99) H 12/05/16 02:30 Calcium 8.7 mg/dL (8.5-10.1) 12/05/16 02:30 Corrected Calcium TNP 12/05/16 02:30 Total Bilirubin 0.40 mg/dL (0.2-1.0) 12/05/16 02:30 AST 20 Units/L (15-37) 12/05/16 02:30 ALT 22 Units/L (12-78) 12/05/16 02:30 Alkaline Phosphatase 69 Units/L (46-116) 12/05/16 02:30 Total Protein 7.1 g/dL (6.4-8.2) 12/05/16 02:30 Albumin 3.9 g/dL (3.4-5.0) 12/05/16 02:30 Globulin 3.2 g/dL (2.5-4.5) 12/05/16 02:30 Albumin/Globulin Ratio 1.2 Ratio (1.1-2.1) 12/05/16 02:30 Specimen Type Clean catch urine 12/05/16 02:09 Urine Color Yellow (YELLOW) 12/05/16 02:09 Urine Appearance Clear (CLEAR) 12/05/16 02:09 Urine pH 6.0 (5.0 - 8.0) 12/05/16 02:09 Ur Specific [place] 1.025 (1.000-1.030) 12/05/16 02:09 Urine Protein 1+ (NEGATIVE) 12/05/16 02:09 Urine Glucose (UA) Negative (NEGATIVE) 12/05/16 02:09 Urine Ketones 4+ (NEGATIVE) 12/05/16 02:09 Urine Occult Blood 3+ (NEGATIVE) 12/05/16 02:09 Urine Nitrite Negative (NEGATIVE) 12/05/16 02:09 Urine Bilirubin Negative (NEGATIVE) 12/05/16 02:09 Urine Urobilinogen Normal (NORMAL) 12/05/16 02:09 Ur Leukocyte Esterase 1+ (NEGATIVE) 12/05/16 02:09 Urine RBC 5-10 /HPF (NEGATIVE) 12/05/16 02:09 Urine WBC 0-3 /HPF (NEGATIVE) 12/05/16 02:09 Ur Squamous Epith Cells Few /HPF (NEGATIVE) 12/05/16 02:09 Urine Bacteria Negative /HPF (NEGATIVE) 12/05/16 02:09 Urine Mucus Few /HPF (NEGATIVE) 12/05/16 02:09 Ur Culture Indicated? No/not indicated 12/05/16 02:09 Urine Opiates Screen Negative (NEG=<300) 12/05/16 02:09 Urine Methadone Screen Negative (NEG=<300) 12/05/16 02:09 Ur Barbiturates Screen Negative (NEG=<200) 12/05/16 02:09 Ur Phencyclidine Scrn Negative (NEG=<25) 12/05/16 02:09 Ur Amphetamines Screen Positive (NEG=<1000) A 12/05/16 02:09 U Benzodiazepines Scrn Positive (NEG=<200) A 12/05/16 02:09 Urine Cocaine Screen Negative (NEG=<300) 12/05/16 02:09 U Marijuana (THC) Screen Positive (NEG=<50) A 12/05/16 02:09 - XRAY XRAY Interpreted by: Radiologist XRAY Findings: REPORT NOTED AND DISCUSS WITH PATIENT. - Diagnosis Discharge Problem: Hypokalemia, Substance use disorder, Nausea & vomiting Abdominal pain Qualifiers: Abdominal location: generalized Qualified Code(s): R10.84 - Generalized abdominal pain - Discharge Plan Condition: Stable Prescriptions: Ketorolac Tromethamine [Toradol Tab] 10 mg PO Q8H PRN #15 tab PRN Reason: Pain Ondansetron HCl [Zofran Tab 4 mg] 4 mg PO Q8H PRN #12 tab PRN Reason: Nausea/Vomiting Ranitidine HCl [ZANTAC TAB 150 MG *] 150 mg PO BID #60 tab - Follow ups/Referrals Follow ups/Referrals: NFD,None [Primary Care Provider] - 1 day ENRIQUE MEJIA [STAFF PHYSICIAN] - 1 day - Instructions Instructions: Abdominal Pain, Adult, [id number], Nausea and Vomiting, Adult, [id number], General Headache Without Cause, [id number] Additional Instructions: RETURN TO ED IF WORSE.
[2016-12-05 02:21] LABS: BILIRUBIN,URINE NEGATIVE (NEGATIVE); BLOOD/HEMOGLOBIN,URINE 3+ (NEGATIVE); GLUCOSE, URINE NEGATIVE (NEGATIVE); KETONES,URINE 4+ (NEGATIVE); LEUKOCYTE ESTERASE ,URINE 1+ (NEGATIVE); NITRITES,URINE NEGATIVE (NEGATIVE); PROTEIN,URINE 1+ (NEGATIVE); UROBILINOGEN,URINE NORMAL (NORMAL)
[2016-12-05] MEDS ORDERED: TORADOL 60 MG VIAL IM ONE (02:25)
[2016-12-05] MEDS ORDERED: PHENERGAN INJ 25 MG IM ONE (02:25)
[2016-12-05] MEDS ORDERED: PHENERGAN INJ 25 MG ONE (02:31)
[2016-12-05] MEDS ORDERED: TORADOL 60 MG VIAL ONE (02:31)
[2016-12-05 02:38] LABS: BASOPHILS # (AUTO) 0.1 X10^3/uL (0.0-0.1); BASOPHILS % (AUTO) 0.6 % (0.2-1.0); EOSINOPHILS # (AUTO) 0.2 x10^3/uL (0.0-0.2); EOSINOPHILS % (AUTO) 2.4 % (0.9-2.9); HEMATOCRIT 40.9 % (36.0-47.0); HEMOGLOBIN 13.8 g/dL (12.0-16.0); LYMPHOCYTES # (AUTO) 1.5 X10^3/uL (1.3-2.9); MEAN CORPUSCULAR HEMOGLOBIN 30.9 pg (27.0-34.0); MEAN CORPUSCULAR HGB CONC 33.8 g/dL (33.0-35.0); MEAN CORPUSCULAR VOLUME 91.6 fL (80.0-100.0); MEAN PLATELET VOLUME 7.7 fL (7.4-11.0); MONOCYTES # (AUTO) 0.4 x10^3/uL (0.3-0.8); MONOCYTES % (AUTO) 4.8 % (0.0-13.0); NEUTROPHILS # (AUTO) 6.7 x10^3/uL (2.2-4.8); NEUTROPHILS % (AUTO) 75.2 % (42.0-75.0); PLATELET COUNT 221 X10^3/uL (150.0-450.0); RED BLOOD COUNT 4.46 X10^6/uL (3.5-5.4); RED CELL DISTRIBUTION WIDTH 12.9 % (11.6-16.5)
[2016-12-05 02:43] LABS: APPEARANCE,URINE CLEAR (CLEAR); BACTERIA,URINE NEGATIVE /HPF (NEGATIVE); COLOR,URINE YELLOW (YELLOW); MUCUS,URINE FEW /HPF (NEGATIVE); SQUAMOUS EPITHELIAL CELL,UR FEW /HPF (NEGATIVE)
[2016-12-05 02:55] LABS: ALANINE AMINOTRANSFERASE 22 Units/L (12-78); ALBUMIN 3.9 g/dL (3.4-5.0); ALKALINE PHOSPHATASE 69 Units/L (46-116); ASPARTATE AMINO TRANSFERASE 20 Units/L (15-37); BLOOD UREA NITROGEN 13 mg/dL (7-18); CALCIUM 8.7 mg/dL (8.5-10.1); CARBON DIOXIDE 21.3 mmol/L (21-32); CHLORIDE 104 mmol/L (98-107); COR NA(FOR HYPERGLY) 141 mmol/L (136-145); CREATININE 0.74 mg/dL (0.55-1.02); GLUCOSE 126 mg/dL (65-99); SODIUM 140 mmol/L (136-145); TOTAL PROTEIN 7.1 g/dL (6.4-8.2); eGFR BLACK RACES > 60 (>60); eGFR NON BLACK RACES > 60 (>60)
--- NOTE | 2016-12-05 04:11 | CT ---
CT abdomen and pelvis without contrast Indication: Abdominal pain Technique: Helical images through the abdomen and pelvis without contrast. Findings: There is no lower chest abnormality. Review of bone windows shows no osseous abnormality. Abdomen: The liver, spleen, pancreas, adrenal glands, kidneys, stomach and small bowel are normal. T he appendix and colon show no acute abnormality with a few scattered diverticula noted. Pelvis: Urinary bladder, rectum and uterus are normal. No adnexal region lesion seen. Tampon is seen in the vagina. Impression: No acute abnormality Reported By:
[2016-12-05] MEDS ORDERED: POTASSIUM CHLORIDE LIQ 20 MEQ UDC PO ONE (04:30)
[2016-12-05] MEDS ORDERED: POTASSIUM CHLORIDE LIQ 20 MEQ UDC ONE (04:44)
[2016-12-05] MEDS ORDERED: ZANTAC INJ IM ONE (04:47)
[2016-12-05] MEDS ORDERED: ZOFRAN INJ 4 MG VIAL ONE (04:47)
[2016-12-05] MEDS ORDERED: ZOFRAN INJ 4 MG VIAL IM ONE (04:50)
[2016-12-05] MEDS ORDERED: LEVSIN/MAALOX/LIDOC VISC PO ONE (05:17)
[2016-12-05] MEDS ORDERED: LEVSIN/MAALOX/LIDOC VISC ONE (05:18)
== END 2016-12-05 05:24 | disposition home or self-care (01) ==
LOC: ER 01:44
DX: E87.6 Hypokalemia (principal); F19.10 Other psychoactive substance abuse, uncomplicated; R11.2 Nausea with vomiting, unspecified; R10.84 Generalized abdominal pain
CPT/HCPCS: 36415; 74176; 80053; 80307; 81001; 85025; 96372; 99283; G0434; J1885; J2405; J2550

== ENCOUNTER 2017-01-30 02:20 | Emergency (ER) | payer SELFPAY ==
[2017-01-30 02:28] VITALS: BP 98/64; BMI 25.8
--- NOTE | 2017-01-30 02:57 | DR.GENAD ---
HPI - PCP Primary Care Physician: NFD - Complaint/Symptoms Chief Complaint Doctors Comments: Patient states that she was seen in [place] three days ago for the treatment of migraine. She states that she has not been diagnosed with migraine but thinks this is what she has. The pain is the the eyes w/o aura. She also c/o low back pain; denies a history of trauma. Chief Complaint:: C/O LOW BACK PAIN, MIGRAINE, NAUSEA. 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 - Family History History of Family Medical Conditions: Yes Family Medical History: Diabetes Mellitus, Cancer, Coronary Artery Disease, Heart Failure, Hypertension - Social History Type of Tobacco Use: Cigarettes How many years tobacco product used: 25 Alcohol Use: None Do you use any recreational Drugs:: No Lives With: Family Lives Where: Home - infectious screening In the last 2 months have you had wt loss of >10#?: NO Have you had fever, night sweats or hemotysis?: No Have you traveled outside the country in the last 6 months?: No Isolation: Standard ROS - Review of Systems Eyes: No Symptoms Reported ENTM: No Symptoms Reported Respiratoy: No Symptoms Reported Cardiovascular: No Symptoms Reported Gastrointestinal/Abdominal: No Symptoms Reported Genitourinary: No Symptoms Reported Neurological: No Symptoms Reported Musculoskeletal: No Symptoms Reported Integumentary: No Symptoms Reported Hematologic/Lymphatic: No Symptoms Reported Endocrine: No Symptoms Reported Psychiatric: No Symptoms Reported All Other Systems: Reviewed and Negative PE - Vital Signs Vitals: Temperature 97.6 F Pulse Rate 84 Respiratory Rate 20 Blood Pressure 98/64 O2 Sat by Pulse Oximetry 100 - General Limitations: No Limitations General Appearance: Alert, In No Apparent Distress, Anxious - Head Head Exam: Normal Inspection, Atraumatic - Eyes Eye exam: Normal Appearance, PERRL, EOMI - ENT ENT Exam: Normal Exam External Ear Exam: Normal External Inspection TM/Canal Exam: Bilateral Normal Nose Exam: Normal Nose Exam Mouth Exam: Normal Inspection Throat Exam: Normal Inspection - Neck Neck Exam: Normal Inspection, Full ROM - Chest Chest Inspection: Normal Inspection - Respiratory Respiratory Exam: Normal Lung Sounds Bilat Respiratory Exam: Bilateral Clear to Auscultation - Cardiovascular Cardiovascular Exam: Regular Rate, Normal Rhythm - Abdominal Exam Abdominal Exam: Normal Inspection, Normal Bowel Sounds Abdominal Tenderness: negative: RUQ, RLQ, LUQ, LLQ, Epigastrium, Suprapubic, Diffuse, Mild, Moderate, Severe, Other - Extremities Extremities Exam: Normal Inspection - Back Back Exam: (R) CVA Tenderness - Neurologic Neurological Exam: Alert, Oriented X3, CN II-XII Intact - Psychiatric Psychiatric Exam: Normal Affect - Skin Skin Exam: Warm, Dry, Intact Course - Treatment Treatment: Patient left prior to lumbar x-ray. - Diagnosis Discharge Problem: Headache Qualifiers: Headache type: unspecified Headache chronicity pattern: unspecified pattern Intractability: not intractable Qualified Code(s): R51 - Headache - Discharge Plan Condition: Stable - Follow ups/Referrals Follow ups/Referrals: NFD,None [Primary Care Provider] - 3 days - Instructions
[2017-01-30] MEDS ORDERED: TORADOL 60 MG VIAL IM ONE (03:01)
[2017-01-30] MEDS ORDERED: PHENERGAN INJ 25 MG IM ONE (03:01)
[2017-01-30] MEDS ORDERED: TORADOL 60 MG VIAL ONE (03:03)
[2017-01-30] MEDS ORDERED: PHENERGAN INJ 25 MG ONE (03:04)
--- NOTE | 2017-01-30 04:00 | RAD ---
EXAM: Lumbar Spine X-Ray INDICATION: Lumbar pain COMPARISION: No priors for comparison TECHNIQUE: AP, lateral L-S junction, and lateral views were obtained, 3 views FINDINGS: There is normal alignment of the lumbar spine. No fracture or subluxation. The vertebral body and in tervertebral disc heights are preserved. The facets appear unremarkable. The surrounding soft tissue s are normal. IMPRESSION: Normal lumbar spine examination Reported By:
[2017-01-30] MEDS ORDERED: CITROMA PO ONE (04:03)
== END 2017-01-30 04:15 | disposition home or self-care (01) ==
LOC: ER 02:20
DX: R51 Headache (principal)
CPT/HCPCS: 72100; 96372; 99282; J1885; J2550

== ENCOUNTER 2017-02-08 06:22 | Emergency (ER) | payer SELFPAY ==
[2017-02-08 06:31] VITALS: BP 115/83; BMI 21.2
--- NOTE | 2017-02-08 07:09 | DR.GENAD ---
HPI - PCP Primary Care Physician: NFD - Complaint/Symptoms Chief Complaint Doctors Comments: Patient admits to being on antibiotics and zofran for one week was treated by Scotty GARCIA. Patient does not know what she was treated for. Today she stated that she has an appointment with Derek to get back on her medication and anxiety. 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 - Family History History of Family Medical Conditions: Yes Family Medical History: Diabetes Mellitus, Cancer, Coronary Artery Disease, Heart Failure, Hypertension - Social History Does patient currently use any type of tobacco product: Yes Have you used tobacco products in the last 12 months: Yes Type of Tobacco Use: Cigarettes Alcohol Use: Occasionally Do you use any recreational Drugs:: No Lives With: Alone Lives Where: Home - infectious screening In the last 2 months have you had wt loss of >10#?: NO Have you had fever, night sweats or hemotysis?: No Have you traveled outside the country in the last 6 months?: No Isolation: Standard ROS - Review of Systems Eyes: No Symptoms Reported ENTM: No Symptoms Reported Respiratoy: No Symptoms Reported Cardiovascular: No Symptoms Reported Gastrointestinal/Abdominal: No Symptoms Reported Genitourinary: No Symptoms Reported Neurological: No Symptoms Reported Musculoskeletal: No Symptoms Reported Integumentary: No Symptoms Reported Hematologic/Lymphatic: No Symptoms Reported Endocrine: No Symptoms Reported Psychiatric: No Symptoms Reported All Other Systems: Reviewed and Negative PE - Vital Signs Vitals: Temperature 98.3 F Pulse Rate 92 Respiratory Rate 16 Blood Pressure 115/83 O2 Sat by Pulse Oximetry 98 - General General Appearance: Alert, In No Apparent Distress - Head Head Exam: Normal Inspection, Atraumatic - Eyes Eye exam: Normal Appearance, PERRL, EOMI - ENT ENT Exam: Mucous Membranes Dry External Ear Exam: Normal External Inspection TM/Canal Exam: Bilateral Normal Nose Exam: Normal Nose Exam Mouth Exam: Normal Inspection Throat Exam: Normal Inspection - Neck Neck Exam: Normal Inspection - Chest Chest Inspection: Normal Inspection - Cardiovascular Cardiovascular Exam: Regular Rate - Abdominal Exam Abdominal Exam: Normal Inspection Abdominal Tenderness: negative: RUQ, RLQ, LUQ, LLQ, Epigastrium, Suprapubic, Diffuse, Mild, Moderate, Severe, Other - Extremities Extremities Exam: Normal Inspection, Full ROM - Back Back Exam: Normal Inspection, Full ROM - Neurologic Neurological Exam: Alert, Oriented X3, CN II-XII Intact - Psychiatric Psychiatric Exam: Normal Affect, Normal Mood - Skin Skin Exam: Warm, Dry, Intact Course - Reevaluation 1st: Improved ROR - Labs Reviewed Result Diagrams: 02/08/17 07:30 02/08/17 07:30 Laboratory: Specimen Type Clean catch urine 02/08/17 07:01 Urine Color Yellow (YELLOW) 02/08/17 07:01 Urine Appearance Slightly hazy (CLEAR) 02/08/17 07:01 Urine pH 6.0 (5.0 - 8.0) 02/08/17 07:01 Ur Specific [place] 1.020 (1.000-1.030) 02/08/17 07:01 Urine Protein 1+ (NEGATIVE) 02/08/17 07:01 Urine Glucose (UA) Negative (NEGATIVE) 02/08/17 07:01 Urine Ketones Negative (NEGATIVE) 02/08/17 07:01 Urine Occult Blood 3+ (NEGATIVE) 02/08/17 07:01 Urine Nitrite Negative (NEGATIVE) 02/08/17 07:01 Urine Bilirubin Negative (NEGATIVE) 02/08/17 07:01 Urine Urobilinogen 2+ (NORMAL) 02/08/17 07:01 Ur Leukocyte Esterase 1+ (NEGATIVE) 02/08/17 07:01 Urine RBC 5-10 /HPF (NEGATIVE) 02/08/17 07:01 Urine WBC 0-3 /HPF (NEGATIVE) 02/08/17 07:01 Ur Squamous Epith Cells Many /HPF (NEGATIVE) 02/08/17 07:01 Urine Bacteria Trace /HPF (NEGATIVE) 02/08/17 07:01 Ur Culture Indicated? No/not indicated 02/08/17 07:01 Urine Opiates Screen Negative (NEG=<300) 02/08/17 07:01 Urine Methadone Screen Negative (NEG=<300) 02/08/17 07:01 Ur Barbiturates Screen Negative (NEG=<200) 02/08/17 07:01 Ur Phencyclidine Scrn Negative (NEG=<25) 02/08/17 07:01 Ur Amphetamines Screen Negative (NEG=<1000) 02/08/17 07:01 U Benzodiazepines Scrn Negative (NEG=<200) 02/08/17 07:01 Urine Cocaine Screen Negative (NEG=<300) 02/08/17 07:01 U Marijuana (THC) Screen Positive (NEG=<50) A 02/08/17 07:01 - Diagnosis Discharge Problem: Arthritis - Discharge Plan Condition: Stable - Follow ups/Referrals Follow ups/Referrals: NFD,None [Primary Care Provider] - 3 days - Instructions
[2017-02-08 07:12] LABS: BILIRUBIN,URINE NEGATIVE (NEGATIVE); BLOOD/HEMOGLOBIN,URINE 3+ (NEGATIVE); GLUCOSE, URINE NEGATIVE (NEGATIVE); KETONES,URINE NEGATIVE (NEGATIVE); LEUKOCYTE ESTERASE ,URINE 1+ (NEGATIVE); NITRITES,URINE NEGATIVE (NEGATIVE); PROTEIN,URINE 1+ (NEGATIVE); UROBILINOGEN,URINE 2+ (NORMAL)
[2017-02-08] MEDS ORDERED: NS 1000 ML 1,000 ML IV ONE (07:12)
[2017-02-08] MEDS ORDERED: PHENERGAN INJ 25 MG IV ONE (07:14)
[2017-02-08] MEDS ORDERED: NS 1000 ML 1,000 ML ONE (07:17)
[2017-02-08] MEDS ORDERED: PHENERGAN INJ 25 MG ONE (07:17)
[2017-02-08 07:23] LABS: APPEARANCE,URINE SLIGHTLY HAZY (CLEAR); BACTERIA,URINE TRACE /HPF (NEGATIVE); COLOR,URINE YELLOW (YELLOW); SQUAMOUS EPITHELIAL CELL,UR MANY /HPF (NEGATIVE)
[2017-02-08] MEDS ORDERED: TORADOL 30 MG VIAL IVP ONE (07:30)
[2017-02-08] MEDS ORDERED: TORADOL 30 MG VIAL ONE ×2 (07:32→08:43)
[2017-02-08 07:39] LABS: BASOPHILS # (AUTO) 0.1 X10^3/uL (0.0-0.1); BASOPHILS % (AUTO) 1.4 % (0.2-1.0); EOSINOPHILS # (AUTO) 0.2 x10^3/uL (0.0-0.2); EOSINOPHILS % (AUTO) 2.7 % (0.9-2.9); HEMATOCRIT 37.5 % (36.0-47.0); HEMOGLOBIN 12.8 g/dL (12.0-16.0); LYMPHOCYTES # (AUTO) 2.6 X10^3/uL (1.3-2.9); LYMPHOCYTES % (AUTO) 31.5 % (21.0-51.0); MEAN CORPUSCULAR HEMOGLOBIN 30.3 pg (27.0-34.0); MEAN CORPUSCULAR HGB CONC 34.1 g/dL (33.0-35.0); MEAN CORPUSCULAR VOLUME 88.9 fL (80.0-100.0); MEAN PLATELET VOLUME 7.5 fL (7.4-11.0); MONOCYTES # (AUTO) 0.6 x10^3/uL (0.3-0.8); MONOCYTES % (AUTO) 7.9 % (0.0-13.0); NEUTROPHILS # (AUTO) 4.6 x10^3/uL (2.2-4.8); NEUTROPHILS % (AUTO) 56.5 % (42.0-75.0); PLATELET COUNT 231 X10^3/uL (150.0-450.0); RED BLOOD COUNT 4.22 X10^6/uL (3.5-5.4); RED CELL DISTRIBUTION WIDTH 14.7 % (11.6-16.5); WHITE BLOOD COUNT 8.1 X10^3/uL (3.6-10.0)
[2017-02-08 07:51] LABS: ALANINE AMINOTRANSFERASE 84 Units/L (12-78); ALBUMIN 3.5 g/dL (3.4-5.0); ALKALINE PHOSPHATASE 114 Units/L (46-116); ASPARTATE AMINO TRANSFERASE 68 Units/L (15-37); BLOOD UREA NITROGEN 16 mg/dL (7-18); CALCIUM 8.2 mg/dL (8.5-10.1); CARBON DIOXIDE 28.6 mmol/L (21-32); CHLORIDE 105 mmol/L (98-107); CREATININE 0.74 mg/dL (0.55-1.02); GLUCOSE 108 mg/dL (65-99); SODIUM 140 mmol/L (136-145); eGFR BLACK RACES > 60 (>60); eGFR NON BLACK RACES > 60 (>60)
[2017-02-08] MEDS ORDERED: IMITREX INJ SC ONE ×2 (07:53→08:21)
[2017-02-08] MEDS ORDERED: TORADOL 30 MG VIAL IM ONE (08:29)
== END 2017-02-08 09:07 | disposition home or self-care (01) ==
LOC: ER 06:22
DX: G43.909 Migraine, unspecified, not intractable, without status migrainosus (principal); K52.89 Other specified noninfective gastroenteritis and colitis
CPT/HCPCS: 36415; 80053; 80307; 81001; 85025; 96365; 96372; 96374; 96375; 99282; 99283; A4222; G0434; J1885; J2550; J3030

== ENCOUNTER 2017-03-01 09:53 | Emergency (ER) | payer SELFPAY ==
[2017-03-01 09:59] VITALS: BP 133/80; BMI 22.8
--- NOTE | 2017-03-01 11:00 | DR.GENAD ---
HPI - PCP Primary Care Physician: ORALIA - HPI Comment HPI Comment: Pt c/o 2-3 day h/o Headache with nausea and occassional vomiting. 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 - Family History History of Family Medical Conditions: Yes Family Medical History: Diabetes Mellitus, Cancer, [place], Hypertension - Social History Does patient currently use any type of tobacco product: Yes Have you used tobacco products in the last 12 months: Yes Type of Tobacco Use: Cigarettes Does any household member use tobacco: Yes Alcohol Use: None Do you use any recreational Drugs:: No (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 ) Lives With: Family Lives Where: Home - infectious screening In the last 2 months have you had wt loss of >10#?: NO Have you had fever, night sweats or hemotysis?: No Have you traveled outside the country in the last 6 months?: No Isolation: Standard ROS - Review of Systems Constitutional: No Symptoms Reported Eyes: No Symptoms Reported ENTM: No Symptoms Reported Respiratoy: No Symptoms Reported Cardiovascular: No Symptoms Reported Gastrointestinal/Abdominal: Nausea, Vomiting Genitourinary: No Symptoms Reported Neurological: Headache Musculoskeletal: No Symptoms Reported Integumentary: No Symptoms Reported Hematologic/Lymphatic: No Symptoms Reported Endocrine: No Symptoms Reported Psychiatric: Other (bipolar and anxiety) All Other Systems: Reviewed and Negative PE - Vital Signs Vitals: Temperature 99.1 F Pulse Rate 115 Respiratory Rate 20 Blood Pressure 133/80 O2 Sat by Pulse Oximetry 99 - General Limitations: No Limitations General Appearance: Alert, In No Apparent Distress - Head Head Exam: Normal Inspection - Eyes Eye exam: Normal Appearance, PERRL, EOMI - ENT ENT Exam: Normal Exam, Normal Oropharynx, Normal External Ear Exam, Mucous Membranes Moist Nose Exam: Normal Nose Exam Mouth Exam: Normal Inspection Throat Exam: Normal Inspection - Neck Neck Exam: Normal Inspection, Full ROM, Trachea Midline - Chest Chest Inspection: Normal Inspection - Respiratory Respiratory Exam: Normal Lung Sounds Bilat Respiratory Exam: Bilateral Clear to Auscultation - Cardiovascular Cardiovascular Exam: Regular Rate, Normal Rhythm, Normal Heart Sounds - Abdominal Exam Abdominal Exam: Normal Inspection - Extremities Extremities Exam: Normal Inspection, Full ROM, Tenderness - Back Back Exam: Normal Inspection, Full ROM. negative: Tenderness, (R) CVA Tenderness, (L) CVA Tenderness, Muscle Spasm, Paraspinal Tenderness, Vertebral Tenderness, (R) Straight Leg Raise, (L) Straight Leg Raise - Neurologic Neurological Exam: Alert, Oriented X3, CN II-XII Intact - Psychiatric Psychiatric Exam: Normal Affect, Normal Mood - Skin Skin Exam: Warm, Dry, Intact, Normal Color MDM - Differential Diagnosis Differential Diagnosis: Migraine headache , aleergic rhinosinusitis, Tension headache - Diagnosis Discharge Problem: Headache around the eyes Low back strain Qualifiers: Encounter type: initial encounter Qualified Code(s): S39.012A - Strain of muscle, fascia and tendon of lower back, initial encounter Headache Qualifiers: Headache type: paroxysmal hemicrania Headache chronicity pattern: episodic headache Intractability: not intractable Qualified Code(s): G44.039 - Episodic paroxysmal hemicrania, not intractable - Discharge Plan Disposition: 01 HOME, SELF-CARE Condition: Stable Prescriptions: Naproxen Sodium [Anaprox Ds] 550 mg PO BID #30 tablet Prochlorperazine Maleate [Compazine] 10 mg PO BID #10 tab - Follow ups/Referrals Follow ups/Referrals: NFD,None [Primary Care Provider] - 3 days - Instructions Instructions: Nausea, Adult, Recurrent Migraine Headache, Back Pain, Adult, [id number]
[2017-03-01] MEDS ORDERED: ZOFRAN INJ 4 MG VIAL IM ONE (11:04)
[2017-03-01] MEDS ORDERED: TORADOL 60 MG VIAL IM ONE (11:04)
[2017-03-01] MEDS ORDERED: DECADRON INJ IM ONE (11:04)
[2017-03-01] MEDS ORDERED: TORADOL 60 MG VIAL ONE (11:22)
[2017-03-01] MEDS ORDERED: DECADRON INJ ONE (11:22)
[2017-03-01] MEDS ORDERED: ZOFRAN INJ 4 MG VIAL ONE (11:22)
== END 2017-03-01 11:41 | disposition home or self-care (01) ==
LOC: ER 10:12
DX: S39.012A Strain of muscle, fascia and tendon of lower back, initial encounter (principal); G44.039 Episodic paroxysmal hemicrania, not intractable; X50.9XXA Other and unspecified overexertion or strenuous movements or postures, initial encounter; Y92.9 Unspecified place or not applicable
CPT/HCPCS: 96372; 99282; J1100; J1885; J2405

== ENCOUNTER 2017-05-21 18:58 | Emergency (ER) | payer SELFPAY ==
[2017-05-21 19:06] VITALS: BP 144/89; BMI 24.3
[2017-05-21] MEDS ORDERED: NS 1000 ML 1,000 ML IV ONE (19:42)
[2017-05-21] MEDS ORDERED: PHENERGAN INJ 25 MG IV ONE (19:43)
--- NOTE | 2017-05-21 19:44 | DR.GENAD ---
HPI - PCP Primary Care Physician: NFD - Complaint/Symptoms Chief Complaint Doctors Comments: Patient states that she just got of [facility] on last week for the same symptoms she has now; vomiting, diarrhea and stomach pain. Chief Complaint:: PT STATES" I.VE GOT BACK PAIN EVERY SINCE 2008 AFTER I HAD A TUBAL. MY NERVES ARE REALLY BAD I;M MANIC DEPRESSIVE AND I HAVE NOT BEEN ON MY MEDS FOR ABOUT A WEEK. I FEEL LIKE EVERYONE IS OUT TO GET ME AND ITS BAD. 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 Past Surgical History Comment: TUBAL - Family History History of Family Medical Conditions: Yes Family Medical History: Diabetes Mellitus, Cancer, [place], Hypertension - Social History Type of Tobacco Use: Cigarettes Does any household member use tobacco: No Alcohol Use: Occasionally Do you use any recreational Drugs:: Yes Lives With: Significant Other Lives Where: Home - infectious screening In the last 2 months have you had wt loss of >10#?: NO Have you had fever, night sweats or hemotysis?: No Have you traveled outside the country in the last 6 months?: No Isolation: Standard ROS - Review of Systems Eyes: No Symptoms Reported ENTM: No Symptoms Reported Respiratoy: No Symptoms Reported Cardiovascular: No Symptoms Reported Gastrointestinal/Abdominal: No Symptoms Reported Genitourinary: No Symptoms Reported Neurological: No Symptoms Reported Musculoskeletal: No Symptoms Reported Integumentary: No Symptoms Reported Hematologic/Lymphatic: No Symptoms Reported Endocrine: No Symptoms Reported Psychiatric: No Symptoms Reported All Other Systems: Reviewed and Negative PE - Vital Signs Vitals: Temperature 982 F Pulse Rate 98 Respiratory Rate 18 Blood Pressure 144/89 O2 Sat by Pulse Oximetry 100 - General General Appearance: Alert, In No Apparent Distress - Head Head Exam: Normal Inspection, Atraumatic - Eyes Eye exam: Normal Appearance, PERRL, EOMI - ENT ENT Exam: Normal Exam External Ear Exam: Normal External Inspection TM/Canal Exam: Bilateral Normal Nose Exam: Normal Nose Exam Mouth Exam: Normal Inspection Throat Exam: Normal Inspection - Neck Neck Exam: Normal Inspection - Chest Chest Inspection: Normal Inspection - Respiratory Respiratory Exam: Normal Lung Sounds Bilat Respiratory Exam: Bilateral Clear to Auscultation - Cardiovascular Cardiovascular Exam: Regular Rate, Normal Rhythm - Abdominal Exam Abdominal Exam: Normal Inspection, Normal Bowel Sounds Abdominal Tenderness: negative: RUQ, RLQ, LUQ, LLQ, Epigastrium, Suprapubic, Diffuse, Mild, Moderate, Severe, Other - Extremities Extremities Exam: Normal Inspection, Full ROM - Back Back Exam: Normal Inspection, Full ROM - Neurologic Neurological Exam: Alert, Oriented X3, CN II-XII Intact - Psychiatric Psychiatric Exam: Normal Affect - Skin Skin Exam: Warm, Dry, Intact ROR - Labs Reviewed Result Diagrams: 05/21/17 20:35 05/21/17 20:35 Laboratory: WBC 9.1 X10^3/uL (3.6-10.0) 05/21/17 20:35 RBC 4.48 X10^6/uL (3.5-5.4) 05/21/17 20:35 Hgb 13.8 g/dL (12.0-16.0) 05/21/17 20:35 Hct 39.9 % (36.0-47.0) 05/21/17 20:35 MCV 89.2 fL (80.0-100.0) 05/21/17 20:35 MCH 30.7 pg (27.0-34.0) 05/21/17 20:35 MCHC 34.4 g/dL (33.0-35.0) 05/21/17 20:35 RDW 13.6 % (11.6-16.5) 05/21/17 20:35 Plt Count 268 X10^3/uL (150.0-450.0) 05/21/17 20:35 MPV 7.6 fL (7.4-11.0) 05/21/17 20:35 Neut % 68.4 % (42.0-75.0) 05/21/17 20:35 Lymph % 20.2 % (21.0-51.0) L 05/21/17 20:35 [place] % 7.0 % (0.0-13.0) 05/21/17 20:35 Eos % 3.3 % (0.9-2.9) H 05/21/17 20:35 Baso % 1.1 % (0.2-1.0) H 05/21/17 20:35 Neut # 6.2 x10^3/uL (2.2-4.8) H 05/21/17 20:35 Lymph # 1.8 X10^3/uL (1.3-2.9) 05/21/17 20:35 [place] # 0.6 x10^3/uL (0.3-0.8) 05/21/17 20:35 Eos # 0.3 x10^3/uL (0.0-0.2) H 05/21/17 20:35 Baso # 0.1 X10^3/uL (0.0-0.1) 05/21/17 20:35 Absolute Nucleated RBC 0.0 /100WBC 05/21/17 20:35 Sodium 139 mmol/L (136-145) 05/21/17 20:35 Corrected Sodium TNP 05/21/17 20:35 Potassium 3.6 mmol/L (3.5-5.1) 05/21/17 20:35 Chloride 102 mmol/L (98-107) 05/21/17 20:35 Carbon Dioxide 27.7 mmol/L (21-32) 05/21/17 20:35 BUN 13 mg/dL (7-18) 05/21/17 20:35 Creatinine 0.88 mg/dL (0.55-1.02) 05/21/17 20:35 Est GFR (MDRD) Af Amer > 60 (>60) 05/21/17 20:35 Est GFR (MDRD) Non-Af > 60 (>60) 05/21/17 20:35 Glucose 92 mg/dL (65-99) 05/21/17 20:35 Calcium 9.4 mg/dL (8.5-10.1) 05/21/17 20:35 Corrected Calcium TNP 05/21/17 20:35 Total Bilirubin 0.40 mg/dL (0.2-1.0) 05/21/17 20:35 AST 31 Units/L (15-37) 05/21/17 20:35 ALT 24 Units/L (12-78) 05/21/17 20:35 Alkaline Phosphatase 75 Units/L (46-116) 05/21/17 20:35 Total Protein 7.5 g/dL (6.4-8.2) 05/21/17 20:35 Albumin 4.1 g/dL (3.4-5.0) 05/21/17 20:35 Globulin 3.4 g/dL (2.5-4.5) 05/21/17 20:35 Albumin/Globulin Ratio 1.2 Ratio (1.1-2.1) 05/21/17 20:35 - Diagnosis Discharge Problem: Nausea with vomiting Qualifiers: Vomiting type: cyclical vomiting Vomiting Intractability: non-intractable Qualified Code(s): G43.A0 - Cyclical vomiting, not intractable - Discharge Plan Condition: Stable - Follow ups/Referrals Follow ups/Referrals: NFD,None [Primary Care Provider] - 3 days - Instructions
[2017-05-21] MEDS ORDERED: NS 1000 ML 1,000 ML ONE (19:46)
[2017-05-21] MEDS ORDERED: NS 50 ML IV 50 ML IV ONE (19:46)
[2017-05-21] MEDS ORDERED: PHENERGAN INJ 25 MG ONE (19:47)
[2017-05-21 20:45] LABS: BASOPHILS # (AUTO) 0.1 X10^3/uL (0.0-0.1); BASOPHILS % (AUTO) 1.1 % (0.2-1.0); EOSINOPHILS # (AUTO) 0.3 x10^3/uL (0.0-0.2); EOSINOPHILS % (AUTO) 3.3 % (0.9-2.9); HEMATOCRIT 39.9 % (36.0-47.0); HEMOGLOBIN 13.8 g/dL (12.0-16.0); LYMPHOCYTES # (AUTO) 1.8 X10^3/uL (1.3-2.9); LYMPHOCYTES % (AUTO) 20.2 % (21.0-51.0); MEAN CORPUSCULAR HEMOGLOBIN 30.7 pg (27.0-34.0); MEAN CORPUSCULAR HGB CONC 34.4 g/dL (33.0-35.0); MEAN CORPUSCULAR VOLUME 89.2 fL (80.0-100.0); MEAN PLATELET VOLUME 7.6 fL (7.4-11.0); MONOCYTES # (AUTO) 0.6 x10^3/uL (0.3-0.8); NEUTROPHILS # (AUTO) 6.2 x10^3/uL (2.2-4.8); NEUTROPHILS % (AUTO) 68.4 % (42.0-75.0); PLATELET COUNT 268 X10^3/uL (150.0-450.0); RED BLOOD COUNT 4.48 X10^6/uL (3.5-5.4); RED CELL DISTRIBUTION WIDTH 13.6 % (11.6-16.5); WHITE BLOOD COUNT 9.1 X10^3/uL (3.6-10.0)
[2017-05-21 21:13] LABS: ALANINE AMINOTRANSFERASE 24 Units/L (12-78); ALBUMIN 4.1 g/dL (3.4-5.0); ALKALINE PHOSPHATASE 75 Units/L (46-116); ASPARTATE AMINO TRANSFERASE 31 Units/L (15-37); BLOOD UREA NITROGEN 13 mg/dL (7-18); CALCIUM 9.4 mg/dL (8.5-10.1); CARBON DIOXIDE 27.7 mmol/L (21-32); CHLORIDE 102 mmol/L (98-107); CREATININE 0.88 mg/dL (0.55-1.02); SODIUM 139 mmol/L (136-145); TOTAL PROTEIN 7.5 g/dL (6.4-8.2); eGFR BLACK RACES > 60 (>60); eGFR NON BLACK RACES > 60 (>60)
[2017-05-21] MEDS ORDERED: ZOFRAN INJ 4 MG VIAL ONE (21:20)
[2017-05-21] MEDS ORDERED: ZOFRAN INJ 4 MG VIAL IVP ONE (21:20)
== END 2017-05-21 21:45 | disposition home or self-care (01) ==
LOC: ER 18:59
DX: G43.A0 Cyclical vomiting, in migraine, not intractable (principal)
CPT/HCPCS: 36415; 80053; 85025; 96365; 96367; 96374; 96375; 99283; A4222; J2405; J2550

== ENCOUNTER → 2017-05-22 | Emergency (ER) | payer SELFPAY ==
[~2017-05-22] MED LIST: NS 1/2 1000 ML IV 1,000 ML IV ONE; NS 1000 ML 1,000 ML ONE; PHENERGAN INJ 25 MG IV ONE; PHENERGAN INJ 25 MG ONE
[2017-05-22 10:06] VITALS: BP 111/72; BMI 18.2
--- NOTE | 2017-05-22 10:36 | DR.NAUSEAF ---
HPI - Time Seen Time seen: 10:25 - Primary Care Physician Primary Care Physician: ORALIA - HPI Comment HPI Comment: She states that she is still having dry heaves, nausea. NO vomitting. She was seen in the E.D. here last night. Her work-up was negative. She received IVF + anti-emetics. She was d/c home with a script for Zofran 4 mg x 1 q 8 hrs/prn. - Complaints Chief Complaint:: PT WAS SEEN IN ER LASTNIGHT FOR N/V/D AND SHE SAID SHE FEELS WORSE TODAY ,, PT STOPPED TAKING HER GEODIN, EFFEXOR AND SHE THINKS IT MAY BE WITHDRAWLS AND HE CANT GET ANYMORE .. BR Self Treatment fo Chief Complaint: PT TO ER VIA EMS AND PT AMBULATORY TO TRIAGE.. 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 - Family History History of Family Medical Conditions: Yes Family Medical History: Diabetes Mellitus, Cancer, [place], Hypertension - Social History Does patient currently use any type of tobacco product: Yes Have you used tobacco products in the last 12 months: Yes Type of Tobacco Use: None How many years tobacco product used: 20 Does any household member use tobacco: No Alcohol Use: Rarely Do you use any recreational Drugs:: Yes (THC,) Lives With: Family Lives Where: Home - infectious screening In the last 2 months have you had wt loss of >10#?: NO Have you had fever, night sweats or hemotysis?: No Have you traveled outside the country in the last 6 months?: No Isolation: Standard ROS - Review of Systems Constitutional: No Symptoms Reported Eyes: No Symptoms Reported ENTM: No Symptoms Reported Respiratoy: No Symptoms Reported Cardiovascular: No Symptoms Reported Gastrointestinal/Abdominal: Nausea Genitourinary: No Symptoms Reported Neurological: No Symptoms Reported Musculoskeletal: No Symptoms Reported Integumentary: No Symptoms Reported Hematologic/Lymphatic: No Symptoms Reported Endocrine: No Symptoms Reported Psychiatric: No Symptoms Reported All Other Systems: Reviewed and Negative PE - Vital Signs Vitals: Temperature 99.2 F Pulse Rate 94 Respiratory Rate 20 Blood Pressure 111/72 O2 Sat by Pulse Oximetry 99 - General Limitations: No Limitations General Appearance: Alert, In No Apparent Distress - Head Head Exam: Normal Inspection - Eyes Eye exam: Normal Appearance - ENT ENT Exam: Normal Exam - Neck Neck Exam: Normal Inspection - Chest Chest Inspection: Normal Inspection - Respiratory Respiratory Exam: Normal Lung Sounds Bilat - Cardiovascular Cardiovascular Exam: Regular Rate, Normal Rhythm - Abdominal Exam Abdominal Exam: Normal Inspection, Normal Bowel Sounds, Soft - Rectal Rectal Exam: Deferred - External Exam: Female: Deferred - Extremities Extremities Exam: Normal Inspection - Back Back Exam: Normal Inspection - Neurologic Neurological Exam: Alert, Oriented X3, CN II-XII Intact - Psychiatric Psychiatric Exam: Normal Affect, Normal Mood - Skin Skin Exam: Warm, Dry, Intact, Normal Color [facility] - Additional Information Obtained Additional Information Obtained From: Old Records Course - Reevaluation 1st: Improved 2nd: Improved - Diagnosis Discharge Problem: Nausea - Discharge Plan Disposition: 01 HOME, SELF-CARE - Follow ups/Referrals Follow ups/Referrals: NFD,None [Primary Care Provider] - 3 days - Instructions Instructions: Nausea, Adult
== END ==
LOC: ER 09:58
DX: R11.0 Nausea (principal)
CPT/HCPCS: 96365; 96374; 99282; 99283; A4222; J2550

== ENCOUNTER 2017-05-23 00:01 | Emergency (ER) | payer SELFPAY ==
[2017-05-23 00:09] VITALS: BP 113/69; BMI 24.3
[2017-05-23] MEDS ORDERED: TORADOL 30 MG VIAL IVP ONE (00:57)
[2017-05-23] MEDS ORDERED: PHENERGAN INJ 25 MG IV ONE (00:57)
--- NOTE | 2017-05-23 00:59 | DR.GENAD ---
HPI - PCP Primary Care Physician: ORALIA - HPI Comment HPI Comment: Still with nausea. This is her 3rd visit here in approximately the past 36 hrs. She has gotten labs. done, administered IVF and anti-emetics. She has prescription for p.o. agents filled. In addition she has been to the hospital in [place] for same complaints. She states these symptoms have been ongoing for weeks now. - Complaint/Symptoms Chief Complaint:: PT STATES" I BEEN TAKING MY ZOFRAN BUT I'M STILL NAUSEAED AND DRY HEAVING I ALSO HAD SOME SLIGHT SEIZURES THIS TODAY, SOMETHING IS VERY WRONG WITH ME I SHOULD NOT BE NAUSEAED " Self Treatment fo Chief Complaint: 2 LITERS OF FLUID ZOFRAN PHENERGAN - Nurses notes reviewed Nurses Notes Review: Yes - Source History Provided: Patient - Mode of Arrival Mode of Arrival: EMS - Timing Onset of Chief Complaint: 05/21/17 - Modifying Factors Worsens:: nothing Improves:: nothing PMH - PMH Past Medical History: Yes Past Medical History: Alzheimers, Anxiety, Asthma, Depression Past Surgical History: 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 - Family History History of Family Medical Conditions: Yes Family Medical History: Diabetes Mellitus, Cancer, [place], Hypertension - Social History Type of Tobacco Use: Cigarettes Does any household member use tobacco: Yes Alcohol Use: Occasionally Do you use any recreational Drugs:: Yes (THC,) Lives With: Family Lives Where: Home - infectious screening In the last 2 months have you had wt loss of >10#?: NO Have you had fever, night sweats or hemotysis?: No Have you traveled outside the country in the last 6 months?: No Isolation: Standard ROS - Review of Systems Constitutional: No Symptoms Reported Eyes: No Symptoms Reported ENTM: No Symptoms Reported Respiratoy: No Symptoms Reported Cardiovascular: No Symptoms Reported Gastrointestinal/Abdominal: Nausea Genitourinary: No Symptoms Reported Neurological: No Symptoms Reported Musculoskeletal: No Symptoms Reported Integumentary: No Symptoms Reported Hematologic/Lymphatic: No Symptoms Reported Endocrine: No Symptoms Reported Psychiatric: No Symptoms Reported All Other Systems: Reviewed and Negative PE - Vital Signs Vitals: Temperature 98.8 F Pulse Rate 100 Respiratory Rate 18 Blood Pressure 113/69 O2 Sat by Pulse Oximetry 99 - General Limitations: No Limitations General Appearance: Alert, In No Apparent Distress - Head Head Exam: Normal Inspection - Eyes Eye exam: Normal Appearance - ENT ENT Exam: Normal Exam - Neck Neck Exam: Normal Inspection - Chest Chest Inspection: Normal Inspection - Respiratory Respiratory Exam: Normal Lung Sounds Bilat - Extremities Extremities Exam: Normal Inspection - Back Back Exam: Normal Inspection - Neurologic Neurological Exam: Alert, Oriented X3, CN II-XII Intact - Psychiatric Psychiatric Exam: Normal Affect - Skin Skin Exam: Warm, Dry, Intact, Normal Color [facility] - Additional Information Additional Information Obtained From: Old Records (multiple visits to this E.D. in the past 12 months for this same complaints.) ROR - Labs Reviewed Result Diagrams: 05/23/17 01:05 Laboratory: Sodium 134 mmol/L (136-145) L 05/23/17 01:05 Corrected Sodium TNP 05/23/17 01:05 Potassium 3.3 mmol/L (3.5-5.1) L 05/23/17 01:05 Chloride 100 mmol/L (98-107) 05/23/17 01:05 Carbon Dioxide 24.1 mmol/L (21-32) 05/23/17 01:05 BUN 11 mg/dL (7-18) 05/23/17 01:05 Creatinine 0.84 mg/dL (0.55-1.02) 05/23/17 01:05 Est GFR (MDRD) Af Amer > 60 (>60) 05/23/17 01:05 Est GFR (MDRD) Non-Af > 60 (>60) 05/23/17 01:05 Glucose 100 mg/dL (65-99) H 05/23/17 01:05 Calcium 9.0 mg/dL (8.5-10.1) 05/23/17 01:05 Corrected Calcium TNP 05/23/17 01:05 Total Bilirubin 0.50 mg/dL (0.2-1.0) 05/23/17 01:05 AST 25 Units/L (15-37) 05/23/17 01:05 ALT 23 Units/L (12-78) 05/23/17 01:05 Alkaline Phosphatase 74 Units/L (46-116) 05/23/17 01:05 Total Protein 7.2 g/dL (6.4-8.2) 05/23/17 01:05 Albumin 3.8 g/dL (3.4-5.0) 05/23/17 01:05 Globulin 3.4 g/dL (2.5-4.5) 05/23/17 01:05 Albumin/Globulin Ratio 1.1 Ratio (1.1-2.1) 05/23/17 01:05 - Diagnosis Discharge Problem: Hypokalemia - Discharge Plan Disposition: HOME, SELF-CARE Condition: Stable - Follow ups/Referrals Follow ups/Referrals: NFD,None [Primary Care Provider] - 3 days - Instructions
[2017-05-23] MEDS ORDERED: TORADOL 30 MG VIAL ONE (01:02)
[2017-05-23] MEDS ORDERED: PHENERGAN INJ 25 MG ONE (01:03)
[2017-05-23 01:30] LABS: ALANINE AMINOTRANSFERASE 23 Units/L (12-78); ALBUMIN 3.8 g/dL (3.4-5.0); ALKALINE PHOSPHATASE 74 Units/L (46-116); ASPARTATE AMINO TRANSFERASE 25 Units/L (15-37); BLOOD UREA NITROGEN 11 mg/dL (7-18); CARBON DIOXIDE 24.1 mmol/L (21-32); CHLORIDE 100 mmol/L (98-107); CREATININE 0.84 mg/dL (0.55-1.02); SODIUM 134 mmol/L (136-145); TOTAL PROTEIN 7.2 g/dL (6.4-8.2); eGFR BLACK RACES > 60 (>60); eGFR NON BLACK RACES > 60 (>60)
[2017-05-23] MEDS ORDERED: K-DUR TAB 20 MEQ PO ONE ×2 (01:41→01:52)
== END 2017-05-23 01:58 | disposition home or self-care (01) ==
LOC: ER 00:01
DX: E87.6 Hypokalemia (principal)
CPT/HCPCS: 36415; 80053; 96365; 96374; 96375; A4222; J1885; J2550

== ENCOUNTER 2017-05-23 10:16 | Emergency (ER) | payer SELFPAY ==
[2017-05-23 10:21] VITALS: BP 117/82; BMI 24.3
[2017-05-23] MEDS ORDERED: TORADOL 30 MG VIAL IVP ONE (11:06)
[2017-05-23] MEDS ORDERED: ZOFRAN INJ 4 MG VIAL IVP ONE (11:06)
[2017-05-23] MEDS ORDERED: NS 1000 ML 1,000 ML IV ONE (11:06)
[2017-05-23] MEDS ORDERED: PEPCID 20 MG IV PREMIX* 20 MG/50 ML BAG IV ONE ×2 (11:07→11:10)
--- NOTE | 2017-05-23 11:08 | DR.GENAD ---
HPI - PCP Primary Care Physician: ORALIA - HPI Comment HPI Comment: PATIENT DENIES FEVER. WAS IN EDAND IV FLUIDS AND NAUSEA MEDS GIVEN. DISCHARGE WITH PO ZOFRAIN. STILL NAUSEA AND VOMITING PRESENT. - Complaint/Symptoms Chief Complaint Doctors Comments: ABDOMINAL PAIN, NAUSEA AND VOMITING TIMES 3 DAYS. HAVE COME TO ED FOR SAME PAIN YESTERDAY. Chief Complaint:: PT C/O N/V/D DIZZINESS. PT STATES SHE HAS BEEN HAVING THESE PROBLEMS FOR THE PAST 3 DAYS - Nurses notes reviewed Nurses Notes Review: Yes - Source History Provided: Patient - Mode of Arrival Mode of Arrival: EMS - Timing Onset of Chief Complaint: 05/20/17 Came on: Suddenly - Duration Duration: Constant Duration: Days - Severity Severity: Moderate PMH - PMH Past Medical History: Yes Past Medical History: Alzheimers, Anxiety, Asthma, Depression Past Surgical History: Yes Surgical History: CH[employer] Surgery Past Surgical History Comment: TUBALIGATION - Family History History of Family Medical Conditions: Yes Family Medical History: Diabetes Mellitus, Cancer, [place], Hypertension - Social History Does patient currently use any type of tobacco product: Yes Have you used tobacco products in the last 12 months: Yes Type of Tobacco Use: Cigarettes Does any household member use tobacco: Yes Alcohol Use: None Do you use any recreational Drugs:: No Lives With: Alone Lives Where: [place] - infectious screening In the last 2 months have you had wt loss of >10#?: NO Have you had fever, night sweats or hemotysis?: No Have you traveled outside the country in the last 6 months?: No Isolation: Standard ROS - Review of Systems Constitutional: Weakness, Fatigue. negative: Chills, Fever Eyes: No Symptoms Reported. negative: Eye Pain, Discharge ENTM: Nose Congestion. negative: Ear Pain, Nose Discharge, Throat Pain Respiratoy: Non-Productive Cough, Short of Breath Cardiovascular: negative: Chest Pain, Edema Gastrointestinal/Abdominal: Abdominal Pain, Nausea, Vomiting Genitourinary: negative: Dysuria, Frequency, Hematuria Neurological: Headache, Weakness, Dizziness Musculoskeletal: Muscle Pain Integumentary: Dryness Hematologic/Lymphatic: No Symptoms Reported Endocrine: No Symptoms Reported All Other Systems: Reviewed and Negative PE - Vital Signs Vitals: Temperature 98.3 F Pulse Rate 89 Respiratory Rate 18 Blood Pressure 117/82 O2 Sat by Pulse Oximetry 97 - General Limitations: No Limitations General Appearance: Alert - Head Head Exam: Normal Inspection - Eyes Eye exam: Normal Appearance - ENT ENT Exam: Normal External Ear Exam External Ear Exam: Normal External Inspection TM/Canal Exam: Bilateral Normal Nose Exam: Normal Nose Exam Mouth Exam: Normal Inspection Throat Exam: Normal Inspection - Neck Neck Exam: Trachea Midline - Chest Chest Inspection: Symmetric Chest Wall Rise - Respiratory Respiratory Exam: Normal Lung Sounds Bilat Respiratory Exam: Bilateral Clear to Auscultation - Cardiovascular Cardiovascular Exam: Regular Rate, Normal Rhythm, Normal Heart Sounds - Abdominal Exam Abdominal Exam: Normal Bowel Sounds, Soft, Tenderness Abdominal Tenderness: Diffuse, Moderate - Extremities Extremities Exam: Normal Inspection - Back Back Exam: Normal Inspection - Neurologic Neurological Exam: Alert, Oriented X3 - Psychiatric Psychiatric Exam: Anxious - Skin Skin Exam: Dry MDM - Differential Diagnosis Differential Diagnosis: ABDOMINAL PAIN, GASTRITIS, DEHYDRATION, PANCREATITIS,UTI Course - Treatment Treatment: SEE ORDERS. IV NS, PEPCID IV AND ZOFRAN IV IN ED. PATIENT DID NOT WISH TO HAVE XRAY DONE. STOP IV FLUID AND SIGN AMA. - Education/Counseling Education/Counseling: Patient, Education Educated On: Treatment, Diagnosis ROR - Labs Reviewed Laboratory Results Reviewed?: Yes Result Diagrams: 05/23/17 11:28 05/23/17 11:28 Laboratory: WBC 7.6 X10^3/uL (3.6-10.0) 05/23/17 11:28 RBC 4.23 X10^6/uL (3.5-5.4) 05/23/17 11:28 Hgb 12.9 g/dL (12.0-16.0) 05/23/17 11:28 Hct 38.3 % (36.0-47.0) 05/23/17 11:28 MCV 90.4 fL (80.0-100.0) 05/23/17 11:28 MCH 30.5 pg (27.0-34.0) 05/23/17 11:28 MCHC 33.8 g/dL (33.0-35.0) 05/23/17 11:28 RDW 13.9 % (11.6-16.5) 05/23/17 11:28 Plt Count 262 X10^3/uL (150.0-450.0) 05/23/17 11:28 MPV 7.8 fL (7.4-11.0) 05/23/17 11:28 Neut % 61.7 % (42.0-75.0) 05/23/17 11:28 Lymph % 27.0 % (21.0-51.0) 05/23/17 11:28 [place] % 8.7 % (0.0-13.0) 05/23/17 11:28 Eos % 1.7 % (0.9-2.9) 05/23/17 11:28 Baso % 0.9 % (0.2-1.0) 05/23/17 11:28 Neut # 4.7 x10^3/uL (2.2-4.8) 05/23/17 11:28 Lymph # 2.1 X10^3/uL (1.3-2.9) 05/23/17 11:28 [place] # 0.7 x10^3/uL (0.3-0.8) 05/23/17 11:28 Eos # 0.1 x10^3/uL (0.0-0.2) 05/23/17 11:28 Baso # 0.1 X10^3/uL (0.0-0.1) 05/23/17 11:28 Absolute Nucleated RBC 0.0 /100WBC 05/23/17 11:28 Sodium 135 mmol/L (136-145) L 05/23/17 11:28 Corrected Sodium TNP 05/23/17 11:28 Potassium 3.8 mmol/L (3.5-5.1) 05/23/17 11:28 Chloride 103 mmol/L (98-107) 05/23/17 11:28 Carbon Dioxide 24.9 mmol/L (21-32) 05/23/17 11:28 BUN 14 mg/dL (7-18) 05/23/17 11:28 Creatinine 0.87 mg/dL (0.55-1.02) 05/23/17 11:28 Est GFR (MDRD) Af Amer > 60 (>60) 05/23/17 11:28 Est GFR (MDRD) Non-Af > 60 (>60) 05/23/17 11:28 Glucose 99 mg/dL (65-99) 05/23/17 11:28 Calcium 9.0 mg/dL (8.5-10.1) 05/23/17 11:28 Corrected Calcium TNP 05/23/17 11:28 Total Bilirubin 0.30 mg/dL (0.2-1.0) 05/23/17 11:28 AST 22 Units/L (15-37) 05/23/17 11:28 ALT 22 Units/L (12-78) 05/23/17 11:28 Alkaline Phosphatase 66 Units/L (46-116) 05/23/17 11:28 Total Protein 6.9 g/dL (6.4-8.2) 05/23/17 11:28 Albumin 3.7 g/dL (3.4-5.0) 05/23/17 11:28 Globulin 3.2 g/dL (2.5-4.5) 05/23/17 11:28 Albumin/Globulin Ratio 1.2 Ratio (1.1-2.1) 05/23/17 11:28 Specimen Type Random urine 05/23/17 11:48 Urine Color Dark yellow (YELLOW) 05/23/17 11:48 Urine Appearance Hazy (CLEAR) 05/23/17 11:48 Urine pH 5.0 (5.0 - 8.0) 05/23/17 11:48 Ur Specific [place] 1.030 (1.000-1.030) 05/23/17 11:48 Urine Protein 2+ (NEGATIVE) 05/23/17 11:48 Urine Glucose (UA) Negative (NEGATIVE) 05/23/17 11:48 Urine Ketones 2+ (NEGATIVE) 05/23/17 11:48 Urine Occult Blood 5+ (NEGATIVE) 05/23/17 11:48 Urine Nitrite Negative (NEGATIVE) 05/23/17 11:48 Urine Bilirubin 1+ (NEGATIVE) 05/23/17 11:48 Urine Urobilinogen 1+ (NORMAL) 05/23/17 11:48 Ur Leukocyte Esterase 1+ (NEGATIVE) 05/23/17 11:48 Urine RBC 5-8 /HPF (NEGATIVE) 05/23/17 11:48 Urine WBC Rare /HPF (NEGATIVE) 05/23/17 11:48 Ur Squamous Epith Cells Many /HPF (NEGATIVE) 05/23/17 11:48 Amorphous Sediment 2+ /HPF (NEGATIVE) 05/23/17 11:48 Urine Bacteria Trace /HPF (NEGATIVE) 05/23/17 11:48 Urine Mucus Many /HPF (NEGATIVE) 05/23/17 11:48 Ur Culture Indicated? No/not indicated 05/23/17 11:48 Urine Opiates Screen Negative (NEG=<300) 05/23/17 11:48 Urine Methadone Screen Negative (NEG=<300) 05/23/17 11:48 Ur Barbiturates Screen Negative (NEG=<200) 05/23/17 11:48 Ur Phencyclidine Scrn Negative (NEG=<25) 05/23/17 11:48 Ur Amphetamines Screen Positive (NEG=<1000) A 05/23/17 11:48 U Benzodiazepines Scrn Positive (NEG=<200) A 05/23/17 11:48 Urine Cocaine Screen Negative (NEG=<300) 05/23/17 11:48 U Marijuana (THC) Screen Positive (NEG=<50) A 05/23/17 11:48 - Diagnosis Discharge Problem: Substance use disorder, Dehydration Abdominal pain Qualifiers: Abdominal location: generalized Qualified Code(s): R10.84 - Generalized abdominal pain Nausea & vomiting Qualifiers: Vomiting type: bilious vomiting Qualified Code(s): R11.14 - Bilious vomiting - Discharge Plan Disposition: 07 AGAINST MEDICAL ADVICE Condition: Stable - Follow ups/Referrals Follow ups/Referrals: NFD,None [Primary Care Provider] - 3 days - Instructions
[2017-05-23] MEDS ORDERED: NS 1000 ML 1,000 ML ONE (11:10)
[2017-05-23] MEDS ORDERED: TORADOL 30 MG VIAL ONE (11:10)
[2017-05-23] MEDS ORDERED: ZOFRAN INJ 4 MG VIAL ONE (11:10)
[2017-05-23 11:46] LABS: BASOPHILS # (AUTO) 0.1 X10^3/uL (0.0-0.1); BASOPHILS % (AUTO) 0.9 % (0.2-1.0); EOSINOPHILS # (AUTO) 0.1 x10^3/uL (0.0-0.2); EOSINOPHILS % (AUTO) 1.7 % (0.9-2.9); HEMATOCRIT 38.3 % (36.0-47.0); HEMOGLOBIN 12.9 g/dL (12.0-16.0); LYMPHOCYTES # (AUTO) 2.1 X10^3/uL (1.3-2.9); MEAN CORPUSCULAR HEMOGLOBIN 30.5 pg (27.0-34.0); MEAN CORPUSCULAR HGB CONC 33.8 g/dL (33.0-35.0); MEAN CORPUSCULAR VOLUME 90.4 fL (80.0-100.0); MEAN PLATELET VOLUME 7.8 fL (7.4-11.0); MONOCYTES # (AUTO) 0.7 x10^3/uL (0.3-0.8); MONOCYTES % (AUTO) 8.7 % (0.0-13.0); NEUTROPHILS # (AUTO) 4.7 x10^3/uL (2.2-4.8); NEUTROPHILS % (AUTO) 61.7 % (42.0-75.0); PLATELET COUNT 262 X10^3/uL (150.0-450.0); RED BLOOD COUNT 4.23 X10^6/uL (3.5-5.4); RED CELL DISTRIBUTION WIDTH 13.9 % (11.6-16.5); WHITE BLOOD COUNT 7.6 X10^3/uL (3.6-10.0)
[2017-05-23 11:56] LABS: BILIRUBIN,URINE 1+ (NEGATIVE); BLOOD/HEMOGLOBIN,URINE 5+ (NEGATIVE); GLUCOSE, URINE NEGATIVE (NEGATIVE); KETONES,URINE 2+ (NEGATIVE); LEUKOCYTE ESTERASE ,URINE 1+ (NEGATIVE); NITRITES,URINE NEGATIVE (NEGATIVE); PROTEIN,URINE 2+ (NEGATIVE); UROBILINOGEN,URINE 1+ (NORMAL)
[2017-05-23 11:57] LABS: ALANINE AMINOTRANSFERASE 22 Units/L (12-78); ALBUMIN 3.7 g/dL (3.4-5.0); ALKALINE PHOSPHATASE 66 Units/L (46-116); ASPARTATE AMINO TRANSFERASE 22 Units/L (15-37); BLOOD UREA NITROGEN 14 mg/dL (7-18); CARBON DIOXIDE 24.9 mmol/L (21-32); CHLORIDE 103 mmol/L (98-107); CREATININE 0.87 mg/dL (0.55-1.02); SODIUM 135 mmol/L (136-145); TOTAL PROTEIN 6.9 g/dL (6.4-8.2); eGFR BLACK RACES > 60 (>60); eGFR NON BLACK RACES > 60 (>60)
[2017-05-23 12:08] LABS: COLOR,URINE DARK YELLOW (YELLOW)
[2017-05-23 12:09] LABS: AMORPHOUS SEDIMENT,UR 2+ /HPF (NEGATIVE); APPEARANCE,URINE HAZY (CLEAR); BACTERIA,URINE TRACE /HPF (NEGATIVE); MUCUS,URINE MANY /HPF (NEGATIVE); SQUAMOUS EPITHELIAL CELL,UR MANY /HPF (NEGATIVE)
== END 2017-05-23 12:32 | disposition left against medical advice (07) ==
LOC: ER 10:29
DX: F12.988 Cannabis use, unspecified with other cannabis-induced disorder (principal); R10.84 Generalized abdominal pain; E86.0 Dehydration; R11.14 Bilious vomiting
CPT/HCPCS: 36415; 80053; 80307; 81001; 85025; 96365; 96374; 96375; 99283; A4222; S0028; G0434; J1885; J2405

== ENCOUNTER 2017-06-22 18:07 | Emergency (ER) | payer SELFPAY ==
[2017-06-22 18:09] VITALS: BP 117/82
== END 2017-06-22 21:04 | disposition left against medical advice (07) ==
LOC: ER 18:28
DX: R07.89 Other chest pain (principal)
CPT/HCPCS: 99281

== ENCOUNTER 2017-06-23 11:02 | Emergency (ER) | payer SELFPAY ==
[2017-06-23 11:11] VITALS: BP 113/73; BMI 24.3
== END 2017-06-23 12:16 | disposition home or self-care (01) ==
LOC: ER 11:11
DX: M79.1 Myalgia (principal)
CPT/HCPCS: 99281

== ENCOUNTER 2017-09-11 17:23 | Emergency (ER) | payer SELFPAY ==
[2017-09-11 17:29] VITALS: BP 147/66; BMI 23.6
--- NOTE | 2017-09-11 17:53 | DR.GENAD ---
HPI - PCP Primary Care Physician: NFD - Complaint/Symptoms Chief Complaint Doctors Comments: Patient presents with complaint of vomiting, diarrhea and nausea for one day. She also admits to a migraine headache, and back pain. She also admits to heavy periods for two years. She has been out of her psychiatric medication for two days. She usually sees her counselor at [facility] every other month. She has beein going to [facility] for 7-8 years. She states that she might be going to a breakdown. Her psychiatric medications are Effexor, Depakote and geodon. Chief Complaint:: PT. C/O LOWER BACK PAIN STATING HER PERIOD IS ABNORMALLY HEAVY. PT. SAYS SHE THINKS SHE HAS BRONCHITIS BECAUSE SHE HAS HAD A DRY COUGH AND SHE THINKS SHE IS GOING THROUGH A MENTAL BREAKDOWN. PT. HAS BEEN OUT OF HER PSYCH MEDS X 2 DAYS WHICH IS EFFEXOR, DEPAKOTE, AND GEODON. PT. SAYS SHE HAS A HARD TIME CATCHING HER BREATH, BAD NIGHTMARES, DIZZINESS AND N/V. - Source History Provided: Patient - Mode of Arrival Mode of Arrival: Ambulatory - Timing Onset of Chief Complaint: 09/08/17 PMH - PMH Past Medical History: Yes Past Medical History: Anxiety, Asthma, Depression Past Surgical History: Yes Surgical History: [employer] WORK [employer]PATCH[employer] Surgery - Family History History of Family Medical Conditions: Yes Family Medical History: Diabetes Mellitus, Cancer, [place], Hypertension - Social History Does patient currently use any type of tobacco product: Yes Have you used tobacco products in the last 12 months: Yes Type of Tobacco Use: Cigarettes Does any household member use tobacco: Yes Alcohol Use: Occasionally Do you use any recreational Drugs:: Yes (MARIJUANA) Lives With: Alone Lives Where: Home - infectious screening In the last 2 months have you had wt loss of >10#?: NO Have you had fever, night sweats or hemotysis?: No Have you traveled outside the country in the last 6 months?: No Isolation: Standard ROS - Review of Systems Eyes: No Symptoms Reported ENTM: No Symptoms Reported Respiratoy: No Symptoms Reported Cardiovascular: No Symptoms Reported Gastrointestinal/Abdominal: No Symptoms Reported Genitourinary: No Symptoms Reported Neurological: No Symptoms Reported Musculoskeletal: No Symptoms Reported Integumentary: No Symptoms Reported Hematologic/Lymphatic: No Symptoms Reported Endocrine: No Symptoms Reported Psychiatric: No Symptoms Reported All Other Systems: Reviewed and Negative PE - Vital Signs Vitals: Temperature 98.2 F Pulse Rate 95 Respiratory Rate 22 Blood Pressure 147/66 O2 Sat by Pulse Oximetry 99 - General Limitations: No Limitations General Appearance: Alert, In No Apparent Distress - Head Head Exam: Normal Inspection, Atraumatic - Eyes Eye exam: Normal Appearance, PERRL, EOMI - ENT ENT Exam: Normal Exam External Ear Exam: Normal External Inspection TM/Canal Exam: Bilateral Normal Nose Exam: Normal Nose Exam Mouth Exam: Normal Inspection Throat Exam: Normal Inspection - Neck Neck Exam: Normal Inspection - Chest Chest Inspection: Normal Inspection - Respiratory Respiratory Exam: Normal Lung Sounds Bilat Respiratory Exam: Bilateral Clear to Auscultation - Cardiovascular Cardiovascular Exam: Regular Rate, Normal Rhythm - Abdominal Exam Abdominal Exam: Normal Inspection Abdominal Tenderness: negative: RUQ, RLQ, LUQ, LLQ, Epigastrium, Suprapubic, Diffuse, Mild, Moderate, Severe, Other - Extremities Extremities Exam: Normal Inspection - Back Back Exam: Normal Inspection - Neurologic Neurological Exam: Alert, Oriented X3, CN II-XII Intact ROR - Labs Reviewed Laboratory Results Reviewed?: Yes (positive:amphetamine,benzodiazepine,THC) Result Diagrams: 09/11/17 18:25 09/11/17 18:25 Laboratory: WBC 10.0 X10^3/uL (3.6-10.0) 09/11/17 18:25 RBC 4.35 X10^6/uL (3.5-5.4) 09/11/17 18:25 Hgb 13.6 g/dL (12.0-16.0) 09/11/17 18: Hct 39.7 % (36.0-47.0) 09/11/17 18: MCV 91.2 fL (80.0-100.0) 09/11/17 18:25 MCH 31.2 pg (27.0-34.0) 09/11/17 18:25 MCHC 34.1 g/dL (33.0-35.0) 09/11/17 18:25 RDW 13.9 % (11.6-16.5) 09/11/17 18: Plt Count 269 X10^3/uL (150.0-450.0) 09/11/17 18:25 MPV 7.7 fL (7.4-11.0) 09/11/17 18:25 Neut % 59.1 % (42.0-75.0) 09/11/17 18: Lymph % 29.6 % (21.0-51.0) 09/11/17 18: [place] % 6.0 % (0.0-13.0) 09/11/17 18:25 Eos % 4.2 % (0.9-2.9) H 09/11/17 18:25 Baso % 1.1 % (0.2-1.0) H 09/11/17 18:25 Neut # 5.9 x10^3/uL (2.2-4.8) H 09/11/17 18: Lymph # 3.0 X10^3/uL (1.3-2.9) H 09/11/17 18:25 [place] # 0.6 x10^3/uL (0.3-0.8) 09/11/17 18: Eos # 0.4 x10^3/uL (0.0-0.2) H 09/11/17 18: Baso # 0.1 X10^3/uL (0.0-0.1) 09/11/17 18:25 Absolute Nucleated RBC 0.0 /100WBC 09/11/17 18:25 D-Dimer < 100 ng/mL (0-400) 09/11/17 18:25 Sodium 139 mmol/L (136-145) 09/11/17 18:25 Corrected Sodium TNP 09/11/17 18:25 Potassium 4.0 mmol/L (3.5-5.1) 09/11/17 18:25 Chloride 109 mmol/L (98-107) H 09/11/17 18:25 Carbon Dioxide 24.4 mmol/L (21-32) 09/11/17 18:25 BUN 7 mg/dL (7-18) 09/11/17 18:25 Creatinine 0.61 mg/dL (0.55-1.02) 09/11/17 18:25 Est GFR (MDRD) Af Amer > 60 (>60) 09/11/17 18:25 Est GFR (MDRD) Non-Af > 60 (>60) 09/11/17 18:25 Glucose 93 mg/dL (65-99) 09/11/17 18:25 Calcium 8.7 mg/dL (8.5-10.1) 09/11/17 18:25 Corrected Calcium 9.3 mg/dL (8.5-10.1) 09/11/17 18:25 Total Bilirubin 0.20 mg/dL (0.2-1.0) 09/11/17 18:25 AST 15 Units/L (15-37) 09/11/17 18:25 ALT 17 Units/L (12-78) 09/11/17 18:25 Alkaline Phosphatase 81 Units/L (46-116) 09/11/17 18:25 Total Protein 6.5 g/dL (6.4-8.2) 09/11/17 18:25 Albumin 3.3 g/dL (3.4-5.0) L 09/11/17 18:25 Globulin 3.2 g/dL (2.5-4.5) 09/11/17 18:25 Albumin/Globulin Ratio 1.0 Ratio (1.1-2.1) L 09/11/17 18:25 Specimen Type Clean catch urine 09/11/17 18:25 Urine Color Yellow (YELLOW) 09/11/17 18:25 Urine Appearance Clear (CLEAR) 09/11/17 18: Urine pH 6.0 (5.0 - 8.0) 09/11/17 18:25 Ur Specific [place] 1.010 (1.000-1.030) 09/11/17 18:25 Urine Protein Negative (NEGATIVE) 09/11/17 18:25 Urine Glucose (UA) Negative (NEGATIVE) 09/11/17 18:25 Urine Ketones Negative (NEGATIVE) 09/11/17 18:25 Urine Occult Blood 4+ (NEGATIVE) 09/11/17 18:25 Urine Nitrite Negative (NEGATIVE) 09/11/17 18:25 Urine Bilirubin Negative (NEGATIVE) 09/11/17 18:25 Urine Urobilinogen Normal (NORMAL) 09/11/17 18:25 Ur Leukocyte Esterase 1+ (NEGATIVE) 09/11/17 18:25 Urine RBC 0-2 /HPF (NEGATIVE) 09/11/17 18:25 Urine WBC 3-5 /HPF (NEGATIVE) 09/11/17 18:25 Ur Squamous Epith Cells Rare /HPF (NEGATIVE) 09/11/17 18:25 Urine Bacteria Trace /HPF (NEGATIVE) 09/11/17 18:25 Urine Mucus Moderate /HPF (NEGATIVE) 09/11/17 18:25 Ur Culture Indicated? No/not indicated 09/11/17 18:25 Urine Opiates Screen Negative (NEG=<300) 09/11/17 18:25 Urine Methadone Screen Negative (NEG=<300) 09/11/17 18:25 Ur Barbiturates Screen Negative (NEG=<200) 09/11/17 18:25 Ur Phencyclidine Scrn Negative (NEG=<25) 09/11/17 18:25 Ur Amphetamines Screen Positive (NEG=<1000) A 09/11/17 18:25 U Benzodiazepines Scrn Positive (NEG=<200) A 09/11/17 18:25 Urine Cocaine Screen Negative (NEG=<300) 09/11/17 18:25 U Marijuana (THC) Screen Positive (NEG=<50) A 09/11/17 18:25 Influenza Type A (PCR) Negative (NEGATIVE) 09/11/17 18:25 Influenza Type B (PCR) Negative (NEGATIVE) 09/11/17 18:25 - Diagnosis Discharge Problem: Illicit drug use, Poly-drug misuser - Discharge Plan Condition: Stable - Follow ups/Referrals Follow ups/Referrals: NFD,None [Primary Care Provider] - 3 days - Instructions
[2017-09-11] MEDS ORDERED: NS 1000 ML 1,000 ML IV ONE (18:15)
[2017-09-11] MEDS ORDERED: ZOFRAN INJ 4 MG VIAL IVP ONE (18:30)
[2017-09-11 18:32] LABS: BASOPHILS # (AUTO) 0.1 X10^3/uL (0.0-0.1); BASOPHILS % (AUTO) 1.1 % (0.2-1.0); EOSINOPHILS # (AUTO) 0.4 x10^3/uL (0.0-0.2); EOSINOPHILS % (AUTO) 4.2 % (0.9-2.9); HEMATOCRIT 39.7 % (36.0-47.0); HEMOGLOBIN 13.6 g/dL (12.0-16.0); LYMPHOCYTES % (AUTO) 29.6 % (21.0-51.0); MEAN CORPUSCULAR HEMOGLOBIN 31.2 pg (27.0-34.0); MEAN CORPUSCULAR HGB CONC 34.1 g/dL (33.0-35.0); MEAN CORPUSCULAR VOLUME 91.2 fL (80.0-100.0); MEAN PLATELET VOLUME 7.7 fL (7.4-11.0); MONOCYTES # (AUTO) 0.6 x10^3/uL (0.3-0.8); NEUTROPHILS # (AUTO) 5.9 x10^3/uL (2.2-4.8); NEUTROPHILS % (AUTO) 59.1 % (42.0-75.0); PLATELET COUNT 269 X10^3/uL (150.0-450.0); RED BLOOD COUNT 4.35 X10^6/uL (3.5-5.4); RED CELL DISTRIBUTION WIDTH 13.9 % (11.6-16.5)
[2017-09-11 18:33] LABS: BILIRUBIN,URINE NEGATIVE (NEGATIVE); BLOOD/HEMOGLOBIN,URINE 4+ (NEGATIVE); GLUCOSE, URINE NEGATIVE (NEGATIVE); KETONES,URINE NEGATIVE (NEGATIVE); LEUKOCYTE ESTERASE ,URINE 1+ (NEGATIVE); NITRITES,URINE NEGATIVE (NEGATIVE); PROTEIN,URINE NEGATIVE (NEGATIVE); UROBILINOGEN,URINE NORMAL (NORMAL)
[2017-09-11] MEDS ORDERED: ZOFRAN INJ 4 MG VIAL ONE (18:37)
[2017-09-11 18:38] LABS: APPEARANCE,URINE CLEAR (CLEAR); BACTERIA,URINE TRACE /HPF (NEGATIVE); COLOR,URINE YELLOW (YELLOW); MUCUS,URINE MODERATE /HPF (NEGATIVE); RBC,URINE 0-2 /HPF (NEGATIVE); SQUAMOUS EPITHELIAL CELL,UR RARE /HPF (NEGATIVE)
[2017-09-11 18:45] LABS: ALANINE AMINOTRANSFERASE 17 Units/L (12-78); ALBUMIN 3.3 g/dL (3.4-5.0); ALKALINE PHOSPHATASE 81 Units/L (46-116); ASPARTATE AMINO TRANSFERASE 15 Units/L (15-37); BLOOD UREA NITROGEN 7 mg/dL (7-18); CALCIUM 8.7 mg/dL (8.5-10.1); CARBON DIOXIDE 24.4 mmol/L (21-32); CHLORIDE 109 mmol/L (98-107); COR CA(FOR HYPOALB) 9.3 mg/dL (8.5-10.1); CREATININE 0.61 mg/dL (0.55-1.02); SODIUM 139 mmol/L (136-145); TOTAL PROTEIN 6.5 g/dL (6.4-8.2); eGFR BLACK RACES > 60 (>60); eGFR NON BLACK RACES > 60 (>60)
[2017-09-11] MEDS ORDERED: ZOFRAN TAB 4 MG PO ONE (19:33)
[2017-09-11] MEDS ORDERED: ZOFRAN TAB 4 MG ONE (19:33)
== END 2017-09-11 19:37 | disposition home or self-care (01) ==
LOC: ER 17:30
DX: F12.229 Cannabis dependence with intoxication, unspecified (principal); F19.10 Other psychoactive substance abuse, uncomplicated
CPT/HCPCS: 36415; 80053; 80307; 81001; 85025; 85378; 87502; 96365; 96367; 96374; 99282; 99283; A4222; S0181; G0434; J2405

== ENCOUNTER 2017-10-16 19:14 | Emergency (ER) | payer OTHER ==
--- NOTE | 2017-10-16 19:29 | DR.GENAD ---
HPI - Complaint/Symptoms Chief Complaint Doctors Comments: Patient is an inmate, she is reported to have had a seizure manifested by shaking of extremities, duration a couple of minutes. There was no urinary or fecal incontinence. Patient states that she has had seizures for five year. Does not know when she had or if she has had an EEG. She is medicated with Depakote ?strength for a few months (six). She has had seizures for five years, not sure as to etiology. Does not know if she has had an EEG. She has been managed by "[facility]" in [place]. She reports that she is Bipolar, Manic,etc. While in long term today it is reported that she fell to floor had jerking of upper extremities and eyes rolled in back of head. Duration of few minutes. 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 - Family History Family Medical History: Diabetes Mellitus, Cancer, [place], Hypertension - Social History Do you use any recreational Drugs:: Yes (MARIJUANA) ROS - Review of Systems Eyes: No Symptoms Reported ENTM: No Symptoms Reported Respiratoy: No Symptoms Reported Cardiovascular: No Symptoms Reported Gastrointestinal/Abdominal: No Symptoms Reported Genitourinary: No Symptoms Reported Neurological: No Symptoms Reported Musculoskeletal: No Symptoms Reported Integumentary: No Symptoms Reported Hematologic/Lymphatic: No Symptoms Reported Endocrine: No Symptoms Reported Psychiatric: No Symptoms Reported All Other Systems: Reviewed and Negative PE - Vital Signs Vitals: Temperature 97.8 F Pulse Rate 68 Respiratory Rate 17 Blood Pressure 146/80 O2 Sat by Pulse Oximetry 100 - General General Appearance: Alert, In No Apparent Distress - Head Head Exam: Normal Inspection, Atraumatic - Eyes Eye exam: Normal Appearance, PERRL, EOMI - ENT ENT Exam: Normal Exam External Ear Exam: Normal External Inspection TM/Canal Exam: Bilateral Normal Nose Exam: Normal Nose Exam Mouth Exam: Normal Inspection Throat Exam: Normal Inspection - Neck Neck Exam: Normal Inspection, Full ROM - Chest Chest Inspection: Normal Inspection, Symmetric Chest Wall Rise - Respiratory Respiratory Exam: Normal Lung Sounds Bilat Respiratory Exam: Bilateral Clear to Auscultation - Cardiovascular Cardiovascular Exam: Regular Rate, Normal Rhythm - Abdominal Exam Abdominal Exam: Normal Inspection, Normal Bowel Sounds Abdominal Tenderness: negative: RUQ, RLQ, LUQ, LLQ, Epigastrium, Suprapubic, Diffuse, Mild, Moderate, Severe, Other - Extremities Extremities Exam: Normal Inspection, Full ROM - Back Back Exam: Normal Inspection - Neurologic Neurological Exam: Alert, Oriented X3, CN II-XII Intact - Psychiatric Psychiatric Exam: Normal Affect - Skin Skin Exam: Warm, Dry Course - Reevaluation 1st: Unchanged ROR - Labs Reviewed Result Diagrams: 10/16/17 20:07 10/16/17 20:07 Laboratory: WBC 13.6 X10^3/uL (3.6-10.0) H 10/16/17 20:07 RBC 4.30 X10^6/uL (3.5-5.4) 10/16/17 20:07 Hgb 13.3 g/dL (12.0-16.0) 10/16/17 20:07 Hct 39.6 % (36.0-47.0) 10/16/17 20:07 MCV 92.0 fL (80.0-100.0) 10/16/17 20:07 MCH 31.0 pg (27.0-34.0) 10/16/17 20:07 MCHC 33.7 g/dL (33.0-35.0) 10/16/17 20:07 RDW 14.1 % (11.6-16.5) 10/16/17 20:07 Plt Count 268 X10^3/uL (150.0-450.0) 10/16/17 20:07 MPV 8.7 fL (7.4-11.0) 10/16/17 20:07 Neut % (Auto) 89.2 % (42.0-75.0) H 10/16/17 20:07 Lymph % (Auto) 6.9 % (21.0-51.0) L 10/16/17 20:07 [place] % (Auto) 3.4 % (0.0-13.0) 10/16/17 20:07 Eos % (Auto) 0.1 % (0.9-2.9) L 10/16/17 20:07 Baso % (Auto) 0.4 % (0.2-1.0) 10/16/17 20:07 Neut # (Auto) 12.2 x10^3/uL (2.2-4.8) H 10/16/17 20:07 Lymph # (Auto) 0.9 X10^3/uL (1.3-2.9) L 10/16/17 20:07 [place] # (Auto) 0.5 x10^3/uL (0.3-0.8) 10/16/17 20:07 Eos # (Auto) 0.0 x10^3/uL (0.0-0.2) 10/16/17 20:07 Baso # (Auto) 0.1 X10^3/uL (0.0-0.1) 10/16/17 20:07 Absolute Nucleated RBC 0.2 /100WBC 10/16/17 20:07 Sodium 141 mmol/L (136-145) 10/16/17 20:07 Corrected Sodium 141 mmol/L (136-145) 10/16/17 20:07 Potassium 3.8 mmol/L (3.5-5.1) 10/16/17 20:07 Chloride 101 mmol/L (98-107) 10/16/17 20:07 Carbon Dioxide 25.5 mmol/L (21-32) 10/16/17 20:07 BUN 11 mg/dL (7-18) 10/16/17 20:07 Creatinine 0.91 mg/dL (0.55-1.02) 10/16/17 20:07 Est GFR (MDRD) Af Amer > 60 (>60) 10/16/17 20:07 Est GFR (MDRD) Non-Af > 60 (>60) 10/16/17 20:07 Glucose 114 mg/dL (65-99) H 10/16/17 20:07 Calcium 9.0 mg/dL (8.5-10.1) 10/16/17 20:07 Specimen Type Clean catch urine 10/16/17 21:06 Urine Color Yellow (YELLOW) 10/16/17 21:06 Urine Appearance Slightly hazy (CLEAR) 10/16/17 21:06 Urine pH 9.0 (5.0 - 8.0) 10/16/17 21:06 Ur Specific [place] 1.020 (1.000-1.030) 10/16/17 21:06 Urine Protein 2+ (NEGATIVE) 10/16/17 21:06 Urine Glucose (UA) Negative (NEGATIVE) 10/16/17 21:06 Urine Ketones 4+ (NEGATIVE) 10/16/17 21:06 Urine Occult Blood Negative (NEGATIVE) 10/16/17 21:06 Urine Nitrite Negative (NEGATIVE) 10/16/17 21:06 Urine Bilirubin Negative (NEGATIVE) 10/16/17 21:06 Urine Urobilinogen Normal (NORMAL) 10/16/17 21:06 Ur Leukocyte Esterase Negative (NEGATIVE) 10/16/17 21:06 Urine RBC 0-2 /HPF (NONE SEEN) 10/16/17 21:06 Urine WBC 0-2 /HPF (NONE SEEN) 10/16/17 21:06 Ur Squamous Epith Cells Moderate /HPF (NEGATIVE) 10/16/17 21:06 Amorphous Sediment 1+ /HPF (NEGATIVE) 10/16/17 21:06 Urine Bacteria Trace /HPF (NEGATIVE) 10/16/17 21:06 Ur Culture Indicated? No/not indicated 10/16/17 21:06 Urine Opiates Screen Negative (NEG=<300) 10/16/17 22:35 Urine Methadone Screen Negative (NEG=<300) 10/16/17 22:35 Ur Barbiturates Screen Negative (NEG=<200) 10/16/17 22:35 Ur Phencyclidine Scrn Negative (NEG=<25) 10/16/17 22:35 Ur Amphetamines Screen Negative (NEG=<1000) 10/16/17 22:35 U Benzodiazepines Scrn Negative (NEG=<200) 10/16/17 22:35 Urine Cocaine Screen Negative (NEG=<300) 10/16/17 22:35 U Marijuana (THC) Screen Negative (NEG=<50) 10/16/17 22:35 - Diagnosis Discharge Problem: Seizure disorder - Discharge Plan Condition: Stable - Follow ups/Referrals Follow ups/Referrals: NFD,None [Primary Care Provider] - 3 days - Instructions
[2017-10-16 19:42] VITALS: BP 146/80; BMI 24.3
[2017-10-16] MEDS ORDERED: ZOFRAN INJ 4 MG VIAL ONE (19:51)
[2017-10-16] MEDS ORDERED: NS 1000 ML 1,000 ML IV ONE (20:08)
[2017-10-16] MEDS ORDERED: ZOFRAN INJ 4 MG VIAL IVP ONE ×2 (20:08→20:34)
[2017-10-16] MEDS ORDERED: NS 1000 ML 1,000 ML ONE (20:22)
[2017-10-16 21:37] LABS: BILIRUBIN,URINE NEGATIVE (NEGATIVE); BLOOD/HEMOGLOBIN,URINE NEGATIVE (NEGATIVE); GLUCOSE, URINE NEGATIVE (NEGATIVE); KETONES,URINE 4+ (NEGATIVE); LEUKOCYTE ESTERASE ,URINE NEGATIVE (NEGATIVE); NITRITES,URINE NEGATIVE (NEGATIVE); PROTEIN,URINE 2+ (NEGATIVE); UROBILINOGEN,URINE NORMAL (NORMAL)
[2017-10-16 21:38] LABS: AMORPHOUS SEDIMENT,UR 1+ /HPF (NEGATIVE); APPEARANCE,URINE SLIGHTLY HAZY (CLEAR); BACTERIA,URINE TRACE /HPF (NEGATIVE); COLOR,URINE YELLOW (YELLOW); RBC,URINE 0-2 /HPF (NONE SEEN); SQUAMOUS EPITHELIAL CELL,UR MODERATE /HPF (NEGATIVE)
[2017-10-16 23:06] LABS: BASOPHILS # (AUTO) 0.1 X10^3/uL (0.0-0.1); BASOPHILS % (AUTO) 0.4 % (0.2-1.0); EOSINOPHILS % (AUTO) 0.1 % (0.9-2.9); HEMATOCRIT 39.6 % (36.0-47.0); HEMOGLOBIN 13.3 g/dL (12.0-16.0); LYMPHOCYTES # (AUTO) 0.9 X10^3/uL (1.3-2.9); LYMPHOCYTES % (AUTO) 6.9 % (21.0-51.0); MEAN CORPUSCULAR HGB CONC 33.7 g/dL (33.0-35.0); MEAN PLATELET VOLUME 8.7 fL (7.4-11.0); MONOCYTES # (AUTO) 0.5 x10^3/uL (0.3-0.8); MONOCYTES % (AUTO) 3.4 % (0.0-13.0); NEUTROPHILS # (AUTO) 12.2 x10^3/uL (2.2-4.8); NEUTROPHILS % (AUTO) 89.2 % (42.0-75.0); PLATELET COUNT 268 X10^3/uL (150.0-450.0); RED CELL DISTRIBUTION WIDTH 14.1 % (11.6-16.5); WHITE BLOOD COUNT 13.6 X10^3/uL (3.6-10.0)
[2017-10-16 23:08] LABS: BLOOD UREA NITROGEN 11 mg/dL (7-18); CARBON DIOXIDE 25.5 mmol/L (21-32); CHLORIDE 101 mmol/L (98-107); COR NA(FOR HYPERGLY) 141 mmol/L (136-145); CREATININE 0.91 mg/dL (0.55-1.02); SODIUM 141 mmol/L (136-145); eGFR BLACK RACES > 60 (>60); eGFR NON BLACK RACES > 60 (>60)
== END 2017-10-16 23:53 | disposition home or self-care (01) ==
LOC: ER 19:14
DX: G40.909 Epilepsy, unspecified, not intractable, without status epilepticus (principal)
CPT/HCPCS: 36415; 80048; 80307; 81001; 85025; 93005; 93010; 96365; 96374; 99283; A4222; G0434; J2405